=== PATIENT | female | born 1965 | race Caucasian/White ===

== ENCOUNTER 2024-09-25 09:07 | Inpatient (IN) | payer MEDICARE, SELFPAY ==
[2024-09-25] VITALS (10 sets, daily range): BP systolic 138–169; BP diastolic 63–81; PULSE 75–93; RESP 16–29; TEMP 36.6–36.8; O2SAT 87–99; BMI 32.3
--- NOTE | ~2024-09-25 | XR_ITS ---
EXAMINATION: XR CHEST 1 VIEW HISTORY: sob COMPARISON: There are no prior studies for comparison. FINDINGS: A single AP portable view of the chest performed at 9:36 AM is submitted. There are streaky opacities in the right upper lung zone which may represent early pneumonia. Lung is clear. There is no pleural effusion, pneumothorax, or pulmonary vascular congestion. The heart is normal in size. There is degenerative disc disease of the spine. XR/XR chest 1V IMPRESSION: Streaky opacities in the right upper lung zone may represent early pneumonia. Follow-up is recommended to document resolution. Electronically signed by: Melvin Garcia MD 09/25/2024 10:02 AM EDT
--- NOTE | 2024-09-25 09:16 | ECG_ITS ---
Test Reason : SOB Blood Pressure : */* mmHG Vent. Rate : 84 BPM Atrial Rate : 84 BPM P-R Int : 144 ms QRS Dur : 84 ms QT Int : 384 ms P-R-T Axes : 87 7 45 degrees QTcB Int : 453 ms Normal sinus rhythm Normal ECG No previous ECGs available Referred By: Mercedez Garza Electronically Signed By: LUCRETIA DE LA CRUZ MD
--- NOTE | 2024-09-25 09:25 | ED_ITS ---
HPI - SOB/Dyspnea General Chief Complaint: Dyspnea Stated Complaint: SOB Time Seen by Provider: 09/25/24 09:16 Source: patient, EMS and RN notes reviewed Mode of arrival: EMS Limitations: no limitations History of Present Illness ED Provider: Gordon Garza PA-C HPI Narrative: 59-year-old female with history of active smoking, 1 pack per day, history of COPD, DM2, HTN, HLD who presents to the ER from urgent care for evaluation of worsening shortness of breath and URI symptoms for the last 6 days. She reports she 1st started with what seemed like allergy symptoms on 09/20 with watery eyes and runny nose. By 09/21 she was feeling fatigue, shortness of breath, having more coughing than usual. She went to the walk-in center 2 days ago and got prescribed doxycycline and prednisone. She has had ongoing shortness of breath, now with productive cough of yellow phlegm, so she went back to the urgent care today. She was found to be hypoxic with diffuse wheezing and was brought to the ER by ambulance. Patient was hypoxic to 86% on arrival, speaking complete sentences with increased respiratory rate. She denies associated chest pain, fever, chills, nausea, vomiting, diarrhea, abdominal pain, leg swelling or known sick contacts. MD elicited complaint: shortness of breath and cough Pertinent past history: COPD Onset (ago): day(s) () Timing: progressively worsening Severity: moderate Exacerbating factors: coughing, talking and allergies Relieving factors: oxygen, rest, bronchodilators and upright position Known history of: COPD Associated symptoms: cough, wheezing, sputum production and chest congestion Treatment prior to arrival: oxygen and bronchodilator Related Data Home oxygen amount: none Home Medications ?Medication ?Instructions ?Recorded ?Confirmed albuterol sulfate 90 mcg/actuation 2 puff inhalation Q4H PRN 09/25/24 aerosol inhaler Shortness Of Breath Or Wheezing aripiprazole 15 mg tablet 15 mg PO DAILY 09/25/24 doxycycline hyclate 100 mg tablet 100 mg PO BID 09/25/24 duloxetine 60 mg capsule,delayed 60 mg PO BID 09/25/24 release fenofibrate nanocrystallized 145 145 mg PO DAILY 09/25/24 mg tablet fluticasone 100 mcg-salmeterol 50 1 ea inhalation BID 09/25/24 mcg/dose blistr powdr for inhalation (Wixela Inhub) gabapentin 300 mg capsule 600 mg PO TID 09/25/24 glyburide 5 mg tablet 10 mg PO BID 09/25/24 lamotrigine 100 mg tablet 200 mg PO BEDTIME 09/25/24 lisinopril 5 mg tablet 5 mg PO DAILY 09/25/24 lorazepam 1 mg tablet 1 mg PO QID 09/25/24 pioglitazone 45 mg tablet 45 mg PO DAILY 09/25/24 prednisone 20 mg tablet 20 mg PO BID 09/25/24 simvastatin 20 mg tablet 20 mg PO BEDTIME 09/25/24 Allergies Allergy/AdvReac Type Severity Reaction Status Date / Time No Known Allergies Allergy Verified 09/25/24 09:20 Review of Systems 2 Review of Systems: Yes all other systems are reviewed and are negative [facility] Social History Social History Advance Directives: No Advance Directives Information Provided: Yes Do you have a plan to hurt others: No Plan Physical Exam 2 Vital Signs: Vital Signs: Last Vital Signs Temp 98.3 F 09/25/24 10:00 Pulse 93 09/25/24 10:50 Resp 20 09/25/24 10:50 BP 157/75 H 09/25/24 10:00 Pulse Ox 90 L 09/25/24 10:00 O2 Del Method Nasal Cannula 09/25/24 10:00 O2 Flow Rate 4 09/25/24 10:00 BMI result Body Mass Index 32.3 Appearance: Alert. Oriented X3. Mild acute respiratory distress. Head: normocephalic, atraumatic. Eyes: Pupils equal, round and reactive to light. ENT: Pharynx normal. No tonsillar swelling or exudate. Neck: Normal inspection. Neck supple. CVS: Normal heart rate and rhythm. Pulses normal. Respiratory: Mild respiratory distress. Breath sounds diminished at the bases, poor aeration at the right base, diffuse expiratory wheeze, prolonged expiratory phase Abdomen: Soft and nontender. +BS x4 Skin: Skin warm and dry. Normal skin color. Normal skin turgor. No rashes. Extremities: No lower extremity edema. No joint swelling. Neuro/psych: Oriented X 3. No motor deficit. No sensory deficit. CN II-XII intact. Normal speech and cognition. Medications Administered Generic Name Dose Route Start Last Admin Trade Name Freq PRN Reason Stop Dose Admin Azithromycin 500 mg/ Sodium 250 mls @ 125 mls/hr 09/25/24 09:24 09/25/24 10:07 Chloride IV 09/25/24 11:23 125 mls/hr ONCE ONE Administration Discontinued Medications Generic Name Dose Route Start Last Admin Trade Name Kain PRN Reason Stop Dose Admin Albuterol Sulfate 5 mg/ 7.5 mg 09/25/24 09:17 09/25/24 09:28 Albuterol Sulfate 2.5 mg INHALE 09/25/24 09:18 7.5 mg ONCE ONE Administration Ceftriaxone Sodium 1 gm 09/25/24 09:24 09/25/24 10:07 Ceftriaxone Sodium 1 Gm Vial IVPUSH 09/25/24 09:25 1 gm ONCE ONE Administration Sodium Chloride 1,000 mls @ 999 mls/hr 09/25/24 09:30 09/25/24 10:07 Ns IV 09/25/24 10:30 999 mls/hr .Q1H1M GHAZAL Administration Insulin Human Lispro 8 unit 09/25/24 10:26 09/25/24 10:35 Insulin Lispro 100 Unit/Ml 3 Ml Vial SUBCUT 09/25/24 10:27 8 unit ONCE ONE Administration Methylprednisolone Sodium Succinate 60 mg 09/25/24 09:24 09/25/24 09:37 Methylprednisolone Sod Succ 125 Mg Vial IVPUSH 09/25/24 09:25 60 mg ONCE ONE Administration Medical Decision Making Medical Decision Making MDM Narrative: 59-year-old female presenting with shortness of breath, cough, chest congestion, that is worsening over the last 6 days despite oral antibiotics and prednisone. She is hypoxic on arrival with mild increased work of breathing, respiratory rate 28 and SpO2 86%. She is placed on supplemental oxygen and ED bronchodilator protocol started. Defer noninvasive for now, she is speaking in complete sentences. Patient found to have a right upper lobe infiltrate on chest x-ray. Patient ordered for Rocephin and azithromycin. After 1st breathing treatment she is feeling slightly better. She is still requiring 4 L of oxygen to maintain SpO2 90-93%. Will plan to admit the patient for further management of pneumonia and COPD exacerbation. Patient also found to be positive for influenza A. She has been having symptoms for 6 days is not qualify for treatment with Tamiflu. Updated on diagnosis and management and plan for admission. Patient agrees with plan all questions were answered. Differential Diagnosis Differential Diagnoses: The differential diagnosis associated with the presentation includes Acute COPD exacerbation, community-acquired pneumonia, acute bronchitis, viral upper respiratory tract infection, acute CHF exacerbation, ACS, PE Admission/Observation Consideration of admission/observation: Escalation of care including admission/observation considered Consult Healthcare Provider Management of the patient was discussed with: Hospitalist Lab Data [facility] Lab Attestation statement: I reviewed the patient's lab results. 09/25/24 09:52 09/25/24 09:52 Labs: Lab Results 09/25/24 09/25/24 09/25/24 Range/Units 09:51 09:52 09:53 WBC 10.8 (4.8-10.8) X10*3/uL RBC 4.81 (4.20-5.50) X10*6/uL Hgb 15.9 (12.0-16.0) g/dl Hct 46.6 (37.0-47.0) % MCV 96.9 (80.0-98.0) fL MCH 33.1 H (27.0-33.0) pg MCHC 34.1 (31.0-35.0) g/dl RDW 13.8 (11.0-16.0) % Plt Count 187 (160-400) X10*3/uL MPV 10.3 (9.4-12.3) fL Immature Gran % (Auto) 0.5 H (0.0-0.4) % Neut % (Auto) 86.7 H (45-73) % Lymph % (Auto) 9.6 L (20-40) % [place] % (Auto) 3.0 (2-11) % Eos % (Auto) 0.0 (0-4) % Baso % (Auto) 0.2 (0-2) % Lymph # (Auto) 1.0 L (1.2-4.9) X10*3/uL [place] # (Auto) 0.3 (0.1-1.2) X10*3/uL Eos # (Auto) 0.0 (0.0-0.4) X10*3/uL Baso # (Auto) 0.0 (0.0-0.2) X10*3/uL Abs Immat Gran (auto) 0.05 H (0.00-0.03) X10*3/uL Absolute Neuts (auto) 9.4 H (2.0-8.3) x10*3/uL Absolute Nucleated RBC 0.000 (0.0-0.012) X10*3/uL Nucleated RBC % (auto) 0.0 (0.0-0.2) /100WBC VBG pH (7.32-7.43) VBG pCO2 mmHg VBG pO2 mmHg VBG HCO3 (22-26) mmol/L VBG O2 Saturation % VBG Base Excess mmol/L Sodium 139 (135-145) mmol/L Potassium 4.3 (3.3-5.1) mmol/L Chloride 100 (96-108) mmol/L Carbon Dioxide 24 (22-29) mmol/L Anion Gap 19 (12-20) BUN 15 (9-16) mg/dL Creatinine 0.74 (0.5-1.4) mg/dL Estim Creat Clear Calc 78.2 Estimated GFR > 60 Random Glucose 311 H (60-115) mg/dL Lactic Acid 1.5 (0.5-2.0) mmol/L Calcium 9.5 (8.4-10.2) mg/dL Magnesium 2.5 (1.6-2.6) mg/dL Total Bilirubin 0.5 (0.0-1.0) mg/dL Direct Bilirubin 0.2 (0.0-0.5) mg/dL AST 50 H (5-31) U/L Alkaline Phosphatase 79 (39-117) U/L Troponin I High Sens 9.0 (<3.5-17.0) ng/L B-Natriuretic Peptide 90 (<100) pg/mL Total Protein 7.6 (6.5-8.0) g/dL Albumin 4.3 (3.5-5.0) g/dL Influenza Type A (PCR) POSITIVE A (Negative) Influenza Type B (PCR) NEGATIVE (Negative) RSV RNA Qual (PCR) NEGATIVE (Negative) SARS-CoV-2 RNA (RT-PCR) NEGATIVE (Negative) 09/25/24 Range/Units 10:01 WBC (4.8-10.8) X10*3/uL RBC (4.20-5.50) X10*6/uL Hgb (12.0-16.0) g/dl Hct (37.0-47.0) % MCV (80.0-98.0) fL MCH (27.0-33.0) pg MCHC (31.0-35.0) g/dl RDW (11.0-16.0) % Plt Count (160-400) X10*3/uL MPV (9.4-12.3) fL Immature Gran % (Auto) (0.0-0.4) % Neut % (Auto) (45-73) % Lymph % (Auto) (20-40) % [place] % (Auto) (2-11) % Eos % (Auto) (0-4) % Baso % (Auto) (0-2) % Lymph # (Auto) (1.2-4.9) X10*3/uL [place] # (Auto) (0.1-1.2) X10*3/uL Eos # (Auto) (0.0-0.4) X10*3/uL Baso # (Auto) (0.0-0.2) X10*3/uL Abs Immat Gran (auto) (0.00-0.03) X10*3/uL Absolute Neuts (auto) (2.0-8.3) x10*3/uL Absolute Nucleated RBC (0.0-0.012) X10*3/uL Nucleated RBC % (auto) (0.0-0.2) /100WBC VBG pH 7.34 (7.32-7.43) VBG pCO2 49 mmHg VBG pO2 48 mmHg VBG HCO3 27 H (22-26) mmol/L VBG O2 Saturation 76.0 % VBG Base Excess 0.5 mmol/L Sodium (135-145) mmol/L Potassium (3.3-5.1) mmol/L Chloride (96-108) mmol/L Carbon Dioxide (22-29) mmol/L Anion Gap (12-20) BUN (9-16) mg/dL Creatinine (0.5-1.4) mg/dL Estim Creat Clear Calc Estimated GFR Random Glucose (60-115) mg/dL Lactic Acid (0.5-2.0) mmol/L Calcium (8.4-10.2) mg/dL Magnesium (1.6-2.6) mg/dL Total Bilirubin (0.0-1.0) mg/dL Direct Bilirubin (0.0-0.5) mg/dL AST (5-31) U/L Alkaline Phosphatase (39-117) U/L Troponin I High Sens (<3.5-17.0) ng/L B-Natriuretic Peptide (<100) pg/mL Total Protein (6.5-8.0) g/dL Albumin (3.5-5.0) g/dL Influenza Type A (PCR) (Negative) Influenza Type B (PCR) (Negative) RSV RNA Qual (PCR) (Negative) SARS-CoV-2 RNA (RT-PCR) (Negative) Independent Interpretation I performed an independent interpretation of an: EKG and Plain X-Ray Interpretation: EKG with normal sinus rhythm, ventricular rate 84 beats per minute, mild artifact present, no ST segment elevations or depressions, normal QTC, normal OH interval Chest x-ray with patchy bilateral opacities, right worse than left Radiology Impression Discussion of test interpretation with radiology: I have reviewed the radiologist's reading. Radiologist Impression: EXAMINATION: XR CHEST 1 VIEW HISTORY: sob COMPARISON: There are no prior studies for comparison. FINDINGS: A single AP portable view of the chest performed at 9:36 AM is submitted. There are streaky opacities in the right upper lung zone which may represent early pneumonia. Lung is clear. There is no pleural effusion, pneumothorax, or pulmonary vascular congestion. The heart is normal in size. There is degenerative disc disease of the spine. XR/XR chest 1V IMPRESSION: Streaky opacities in the right upper lung zone may represent early pneumonia. Follow-up is recommended to document resolution. Independent Historian Clinical information obtained from an independent historian. History obtained from or confirmed by: EMS Tests considered The following testing was considered but not selected: CT scan of the chest considered Prescription Management I considered prescription management with: Pain Medication, Antiviral, Antibiotic and Other (Bronchodilator, steroids) Chronic Conditions Patient?s care impacted by: Other (COPD) Critical Care Time Critical Care Time Critical Care Time: Yes Total Critical Care Time: 36 Attestation: I have personally provided critical care time exclusive of time spent on separately billable procedures. Time includes review of lab data, radiology results, discussion with consultants, and monitoring for potential decompensation. Intervention performed as documented. Discharge Plan Discharge Clinical Impression: Acute exacerbation of chronic obstructive airways disease, Influenza A Community acquired pneumonia Qualifiers: Laterality: right Lung location: unspecified part of lung Qualified Code(s): J 18.9 - Pneumonia, unspecified organism Patient Disposition: Admitted As Inpatient Print Language: Icelandic
[2024-09-25] MEDS: Albuterol Sulfate 5 MG, Albuterol Sulfate (0.083%) 2.5 MG 7.5 MG INHALE (09:28)
--- NOTE | 2024-09-25 09:28 | PC.NURSE ---
Per EMS, pt had been having difficulty breathing since sunday. Pt was seen in urgent care on Sunday adn given updraft, doxycycline, and prednisone. Symptoms got worse and was seen at urgent care today. Pt was 80% on RA and received 1 albuterol at urgent care. Ambulence gave 2 duo nebs, 1 albuterol, 125mg of solumed, and 2mg of mag sulfate.
[2024-09-25 09:58] LABS: MANUAL DIFF FLAG NO
[2024-09-25 10:00] LABS: Basophils Percent Auto 0.2 % (0-2); Hematocrit 46.6 % (37.0-47.0); Hemoglobin 15.9 g/dl (12.0-16.0); Imm Gran Abs Auto 0.05 X10*3/uL (0.00-0.03); Imm Gran Pct Auto 0.5 % (0.0-0.4); Lymphocytes Percent Auto 9.6 % (20-40); Mean Corpuscular HGB Conc 34.1 g/dl (31.0-35.0); Mean Corpuscular Hemoglobin 33.1 pg (27.0-33.0); Mean Corpuscular Volume 96.9 fL (80.0-98.0); Mean Platelet Volume 10.3 fL (9.4-12.3); Monocytes Absolute Auto 0.3 X10*3/uL (0.1-1.2); Neutrophils Absolute Auto 9.4 x10*3/uL (2.0-8.3); Neutrophils Percent Auto 86.7 % (45-73); Platelet Count 187 X10*3/uL (160-400); Red Blood Count 4.81 X10*6/uL (4.20-5.50); Red Cell Distribution Width 13.8 % (11.0-16.0); White Blood Count 10.8 X10*3/uL (4.8-10.8)
[2024-09-25 10:04] LABS: Venous Blood Gas Refer to POC result
[2024-09-25 10:04] LABS: VBG Base Excess 0.5 mmol/L; VBG HCO3 27 mmol/L (22-26); VBG pCO2 49 mmHg; VBG pH 7.34 (7.32-7.43); VBG pO2 48 mmHg
[2024-09-25] MEDS: 0.9 % Sodium Chloride 1,000 ML 999 ML IV (10:07)
[2024-09-25] MEDS: cefTRIAXone sodium 1 GM VIAL IVPUSH (10:07)
[2024-09-25] MEDS: Azithromycin 500 MG in 0.9 % Sodium Chloride 250 ML 125 MG IV (10:07)
[2024-09-25 10:21] LABS: Lactic Acid 1.5 mmol/L (0.5-2.0)
[2024-09-25 10:23] LABS: Albumin Level 4.3 g/dL (3.5-5.0); Anion Gap 19 (12-20); Aspartate Amino Transferase 50 U/L (5-31); Bilirubin Direct 0.2 mg/dL (0.0-0.5); Bilirubin Total 0.5 mg/dL (0.0-1.0); Blood Urea Nitrogen 15 mg/dL (9-16); Calcium 9.5 mg/dL (8.4-10.2); Carbon Dioxide 24 mmol/L (22-29); Chloride 100 mmol/L (96-108); Creatinine Clr Calc Pharmacy 78.2; Estimated Glomerular Filt Rate > 60; Glucose Random 311 mg/dL (60-115); Magnesium 2.5 mg/dL (1.6-2.6); Potassium 4.3 mmol/L (3.3-5.1); Sodium 139 mmol/L (135-145); Total Protein 7.6 g/dL (6.5-8.0)
[2024-09-25 10:24] LABS: B Type Natriuretic Peptide 90 pg/mL (<100)
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
--- OUTSIDE RECORDS SUMMARY | 2024-09-25 10:27 | XMS_ITS | Patient Health Record ---
[facility] Organization [facility] Address [address] [facility] [place] [address] Care Team Providers Care Junior Media Buyer Name Role Phone Taniya Ibarra MD Primary Care Provider Unavail able Trent Galan Unavailable [phone] Allergies No Known Allergies Results Component Value Reference Range Notes HEMOGLOBIN A1C (GLYCOHEMOGLO BIN) Reviewed date:12/19/2023 08:34:55 AM Interpretation: Performing Lab: Notes/Report: HEMOGLOBIN A1C % (HH) 6.7 Reason For Referral No Information Medications Medication SIG (Take, Route, Frequency, Duration) Notes Start Date End Date Status Gemfibrozil Active ProAir HFA Not-Takin g glyBURIDE 5 MG Orally Twice daily Active DULoxetine HCl Activ e Escitalopram Oxalate 10 MG Orally Once a day Not-Taking Fenofibrate Active Chantix 1 MG 1 tablet Orally Twic e a day Not-Taking Lisinopril Not-Takin g Centrum Silver Activ e oxyBUTYnin Not-Takin g Extra Depth Orthopedic Shoes (1 Pair) with Customized Heat Molded Multidensity Innersoles (3 Pair) as directed Dx: NIDDM (E11.9), Hammertoe Foot Deformity (M20.41,M20.42), Preulcerative Skin Lesion(s) (L85.1) 12/19/2023 Active centrum silver Not-T aking Pioglitazone HCl 15 MG 1 tablet Orally O nce a day for 30 day(s) Active Simvastatin Active LaMICtal Active LORazepam 1 MG 1 tablet as needed Orally Twice a day 04/30/2014 Active Immunizations Vaccine Route Administration Date Status Comme nts COVID-19 Moderna Vaccine Unknown 08/25/2020 Administere d 07/27/20 Influenza Unknown 01/28/2018 Administered Influenza Unknown 02/17/2019 Administered Influenza Unknown 03/14/2020 Administered Social History Tobacco Use: Social History Observation Description Date Details (start date - stop date) Current Smoker NA - NA Tobacco Use/Smoking Question Answer Notes Are you a: current smoker Additional Findings: Tobacco User Moderate cigar ette smoker (10-19 cigs/day) Alcohol Screen Question Answer Notes Did you have a drink contain ing alcohol in the past year? Yes How often did you have a dri nk containing alcohol in the past year? Monthly or less (1 point) Points 1 Interpretation Negative Tobacco use other than smoking: Question Answer Notes Are you an other tobacco user? No Problems Problem Type SNOMED Code ICD Code Onset Dates Problem Status W/U Status Risk Notes Problem Acquired hammer toe of right foot (609596646611101 5) Other hammer toe(s) (acquired), right foot (M20.41) Active confirmed Problem Acquired hammer toe of left foot (311725565685059 3) Other hammer toe(s) (acquired), left foot (M20.42) Active confirmed Problem Type 2 diabetes mellitus without complication (341675473) Type 2 diabetes mellitus without complication (E11.9) Active confirmed Vital Signs Height 5ft 2 in in 12/19/2023 Weight 166 lbs 12/19/2023 BMI 30.36 kg/m2 12/19/2023 Procedures Procedure Date Ordered Date Performed Result Body Sit e 19354-OMQYSKK NAIL, 6 OR MORE 12/19/2023 N/A Encounters Encounter Location Date Provider Diagnosis [facility] [place] [address] [place] [id number] 12/19/2023 Trent Adama Pain in right toe(s) M79.674 ; Tinea unguium B35.1 ; Pain in left toe(s) M79.675 ; Type 2 diabetes mellitus without complication E11.9 ; Other hammer toe(s) (acquired), left foot M20.42 and Other hammer toe(s) (acquired), right foot M20.41 Assessments Encounter Date Diagnosis (ICD Code) Assessment Notes Treatment Notes Treatment Clinical Notes Section Notes 12/19/2023 Pain in right toe(s) (ICD-10 - M79.674) 12/19/2023 Tinea unguium (ICD-10 - B35.1) 12/19/2023 Pain in left toe(s) (ICD-10 - M79.675) 12/19/2023 Type 2 diabetes mellitus without complication (ICD-10 - E11.9) 12/19/2023 Other hammer toe(s) (acquired), left foot (ICD-10 - M20.42) 12/19/2023 Other hammer toe(s) (acquired), right foot (ICD-10 - M20.41) Patient Educated with: DIABETIC FOOT CARE INSTRUCTIONS.p df (DIABETIC FOOT CARE INSTRUCTIONS.p df) Plan Of Treatment Pending Test Test Name Order Date Hemoglobin A1c 09/17/2014 [id number] NAIL, 6 OR MORE 04/30/2014 70615-[id number] NAIL, 6 OR MORE 09/17/2014 [id number] NAIL, 6 OR MORE 03/20/2018 [id number] NAIL, 6 OR MORE 03/17/2019 [id number] NAIL, 6 OR MORE 05/27/2020 [id number] NAIL, 6 OR MORE 07/18/2021 [id number] NAIL, 6 OR MORE 07/24/2022 [id number] NAIL, 6 OR MORE 12/19/2023 [id number] NAIL, 6 OR MORE 01/11/2017 26730-Lzjjkxmd Plate 03/20/2018 27131-Lrwwxcyr Plate 04/30/2014 73670-Rorxatwd Plate 01/11/2017 Next Appt Details Provider Name:Trent Galan , 12/17/2024 08:30:00 AM, [address] [facility], [address], [place], [address], Insurance Providers Payer Name Payer Address Payer Phone Subscriber Number Group Number Insured Name Patient Relationship to Insured Coverage Start Date Coverage End Date [employer] [address] [place] [phone] [id number] Juan M Laughlin Spouse - patient is the spouse of the insured Medicare [facility] [address] [facility] [place] [phone] [id number] Ledy Laughlin Self - patient is the insured 8 Medical (General) History Medical History History ICD Code Anxiety asthma Chicken pox Depression Measles Sciatica Cholesterol Diabetic Surgical History Surgery Date(Month/Year) section 87 & 90 hysterectomy 93 abdominal surgery 96 eye surgery 06/2015 Colostomy ileostomy 04/29/2020 Hospitalization History Reason Date(Month/Year) [facility] Colon resection 01[facility]28[facility]18 [facility] Accute diverticulitis 10/15/17 Eye surgery
--- OUTSIDE RECORDS SUMMARY | 2024-09-25 10:27 | XMS_ITS ---
Author Organization [facility] Address [address] [place] [address] Care Team Providers Care Baseball Inspector And Repairer Name Role Phone Taniya Ibarra MD Primary Care Provider Unavail able Trent Galan Unavailable [phone] Allergies No Known Allergies REASON FOR VISIT At Risk Footcare, Painful Nail(s) aggravated by shoes and causing difficulty standing/walking., ToeIrritation Medications Medication SIG (Take, Route, Frequency, Duration) Notes Start Date End Date Status Escitalopram Oxalate 10 MG Orally Once a day Not-Taking Chantix 1 MG 1 tablet Orally Twic e a day Not-Taking Lisinopril Not-Takin g oxyBUTYnin Not-Takin g centrum silver Not-T aking glyBURIDE 5 MG Orally Twice daily Active Pioglitazone HCl 15 MG 1 tablet Orally O nce a day for 30 day(s) Active Simvastatin Active LaMICtal Active LORazepam 1 MG 1 tablet as needed Orally Twice a day 04/30/2014 Active Gemfibrozil Active ProAir HFA Not-Takin g DULoxetine HCl Activ e Fenofibrate Active Centrum Silver Activ e Extra Depth Orthopedic Shoes (1 Pair) with Customized Heat Molded Multidensity Innersoles (3 Pair) as directed Dx: NIDDM (E11.9), Hammertoe Foot Deformity (M20.41,M20.42), Preulcerative Skin Lesion(s) (L85.1) 12/19/2023 Active Social History Tobacco Use: Social History Observation [...] Are you an other tobacco user? No Vital Signs Height 5ft 2 in in 12/19/2023 Weight 166 lbs 12/19/2023 BMI 30.36 kg/m2 12/19/2023 Procedures Procedure Date Ordered Date Performed Result Body Sit e 43855-MPRRTIF NAIL, 6 OR MORE 12/19/2023 N/A Encounters Encounter Location Date Provider Diagnosis [facility] [address] [address] 12/19/2023 Trent Ponceunier Pain in right toe(s) M79.674 ; Tinea [...] FOOT CARE INSTRUCTIONS.p df) Plan Of Treatment Medication Medication Name Sig Start Date Stop Date Notes Extra Depth Orthopedic Shoes (1 Pair) with Customized Heat Molded Multidensity Innersoles (3 Pair) as directed Dx: NIDDM (E11.9), Hammertoe Foot Deformity (M20.41,M20.42), Preulcerative Skin Lesion(s) (L85.1) 12/19/2023 Treatment Notes Assessment Notes Other hammer toe(s) (acquired), right fo ot Patient Educated with: DIABETIC FOOT CARE INSTRUCTIONS.pdf (DIABETIC FOOT CARE INSTRUCTIONS.pdf) Pending Test Test Name Order Date [id number] NAIL, 6 OR MORE 12/19/2023 Next Appt Details Follow Up: 1 Year, Reason: Provider Name:Trent Galan , 12/17/2024 08:30:00 AM, [address] [facility], [address], [place], [address], Procedure Notes * Category Sub-Category Detail Notes Debride Nail 6-10 Nail debridement Nail debridem ent performed extensively to reduce/remove overall nail length, girth, thickness, subungual debris, and necrotic tissue, by manual and electrical means through the use of a nail nipper and/or dremel, to more viable healthy nail plate or bed tissue 6-10. Silver nitrate used for any petechial bleeding as necessary. Patient chooses, no pharmaceutical tx (99606) Progress Notes * Ledy LAUGHLIN EDOB:1965 ( 59 yo F)Acc No.[id number]:12/19/2023 Progress Note Patient:?Ledy LAUGHLIN Provider:?Trent Galan DPM :1965???Age:58 Y???Sex:Female D ate:12/19/2023 Address:[address], [place], [phone] Pcp:Taniya Ibarra MD Subjective: * Chief Complaints: * ???At Risk FootcarePainful N ail(s) aggravated by shoes and causing difficulty standing/walking.Toe Irritation * HPI: ???At Risk footcare:?Pt States Last PCP Visit:?Date?11/23/2023 ???Toe pain:?Location:?B/L feet.?Duration:?several years.?Course:?worse.?Aggravated by:?shoes, any pressure.?Treatments:?change in shoes.? * ROS:?General/Constitutional:?Nausea?denies.?Vomiting?denies.?Hunger Thirst?denies.?Loss appetite?denies.?Chills?denies.?Fatigue?denies.?Fever?denies.?Night Sweats?denies.?Unexplained weight loss?denies.?Ophthalmologic:?Blurred vision?denies.?Red eye?denies.?HEENTM:?Dentures?denies.?Dizziness?denies.?Glasses/contacts?admits.?Retinopathy?den ies.?Blurred/double vision?denies.?TMJ?denies.?Discharge/drainage?denies.?Implants?denies.?Hard of hearing denies.?Difficulty chewing/swallowing/speaking?denies.?Nose bleeds?denies.?Sore mouth?denies.?Swollen glands?denies.?Respiratory:?On O xygen?denies.?Pneumonia/pleurisy?denies.?Bronchitis?denies.?Emphysema?denies.?Co ughing?denies.?Cough blood?denies.?Shortness of breath?denies.?Wheezing?denies.?Cardiovascular:?Pacemaker?denies.?MVP?denies.?WPW?denies.?CHF?denies.?Heart attack?denies.?Septal defect?denies.?Rapid beat?denies.?Chest pain ?denies.?Atrial Fib.?denies.?Murmur/Palpitations?denies.?Gastrointestinal:?Hemorrhoids?denies.?Stomach/Abdominal pain?denies.?Dark blood stool?denies.?Irritable bowel ?denies.?Constipation?denies.?Diarrhea?denies.?Vomiting?denies.?Hematology:?Swelling?denies.?Bruising?denies.?Bleeding problem?denies.?Genitourinary:?Blood urine?denies.?Frequent/Painfu/urination/bladder control?denies.?Kidney stones?denies.?Infection (UTI)?denies.?Nephropathy?denies.?Musculoskeletal:?Hammertoes?admits.?Bunions?denies.?Scoliosis/kyphosis?denies.?Muscle cramps / walking?denies.?Generalized aches and pains?denies.?Weakness?denies.?Integ.:?Mendoza?denies.?Scars?admits.?Corns/calluses?admits.?Ingrown nails?admits.?Painful nails?admits.?Rashes?denies.?Neurologic:?Difficulty sleeping?admits.?Bipolar?denies.?Brain disorder?denies.?Balance t rouble?denies.?Confusion?denies.?Fainting/blackouts?denies.?Headache?denies.?Eligio mors?denies.? * Medical History:? * Surgical History:? s ection 87 & 90hysterectomy 93abdominal surgery 96eye surgery 06/2015Colostomy 9'18ileostomy 04/29/2020 * Hospitalization/Major Diagno stic Procedure:?Eye surgery [facility] Accute diverticulitis 10/15/17[facility] Colon resection 01/28/18[facility] 02/12/18 * Family History:?Mother: zach garsia?Father: , diagnosed with Diabetic - NIDDM, Unspecified essential hypertension, Unspecified heart disease, Unspecified cerebral artery occlusion with cerebral infarction.?Daughter(s): alive.?Son(s): .?Maternal Grand Mother: unknown, diagnosed with Diabetic - NIDDM.?Spouse: alive.?1 son(s) , 1 daughter(s) . .? * Social History:?Tobacco Use:?Tobacco Use/Smoking?Are you a:?current smoker ?Additional Findings: Tobacco User?Moderate cigarette smoker (10-19 cigs/day) ?Tobacco use other than smoking?Are you an other tobacco user??No ???Drugs/Alcohol:?Drugs?Have you used drugs other than those for medical reasons in the past 12 months??No ?Alcohol Screen?Did you have a drink containing alcohol in the past year??Yes ?How often did you have a drink containing alcohol in the past year??Monthly or less (1 point) ?Points?1 ?Interpretation?Negative ???Miscellaneous:?Caffeine: yes, frequency: , 1-2 cups per day. ?Children: yes. ?Exercise: yes, walking. ?Marital status: . ?Occupation: Retired. * Medications:?TakingCentrum S ilver DULoxetine HCl Fenofibrate Gemfibrozil glyBURIDE 5 MG Tablet Orally Twice daily LaMICtal LORazepam 1 MG Tablet 1 tablet as needed Orally Twice a day Pioglitazone HCl 15 MG Tablet 1 tablet Orally Once a day Simvastatin Taking Centrum Silver Taking DULoxetine HCl Taking Fenofibrate Taking Gemfibrozil Taking glyBURIDE 5 MG Tablet Orally Twice daily Taking LaMICtal Taking LORazepam 1 MG Tablet 1 tablet as needed Orally Twice a day Taking Pioglitazone HCl 15 MG Tablet 1 tablet Orally Once a day Taking Simvastatin Not-Taking/PRNcentrum silver Lisinopril oxyBUTYnin Escitalopram Oxalate 10 MG Tablet Orally Once a day Chantix 1 MG Tablet 1 tablet Orally Twice a day ProAir HFA Medication List reviewed and reconciled with the patientNot-Taking/PRN centrum silver Not-Taking/PRN Lisinopril Not-Taking/PRN oxyBUTYnin Not-Taking/PRN Escitalopram Oxalate 10 MG Tablet Orally Once a day Not-Taking/PRN Chantix 1 MG Tablet 1 tablet Orally Twice a day Not-Taking/PRN ProAir HFA Medication List reviewed and reconciled with the patient * Allergies:?N.K.D.A.yes[Aller gies Verified] Objective: * Vitals:?Ht:5ft 2 in, Wt:166, BMI:30.36, Shoe size:9, BS:128, Ht-cm: 157.48 cm, Wt-k.3 kg. * ???Past Orders: ???Lab:HEMOGLOBIN A1C (GLYCO HEMOGLOBIN) (Order Date - 11/29/2023) (Collection Date & Time - 11/29/2023 08:33 AM) ? Value Reference Range ?HEMOGLOBIN A1C % (HH) 6.7 * Examination: ???Ophthalmology Referral: ?DIABETES EYE EXAM?Procedure Performed:?Yes ?Date of Exam Performed?10/24/2023?Nails: ?NAILS are:?Elongated, overgrown, dystrophic, greater than 3mm thick, lytic, discolored and friable with crumbly malodorous subungual debris, with pain on palpation, TA, T1, T2, T4, T5, T6, T9.?Orthopedic: ?MUSCLE STRENGTH:?5/5 all groups in a symmetrical fashion , B/L.?FOOT MORPHOLOGY:? No Charcot collapse/destruction noted at MTJ.?DIGITAL DEFORMITIES:?Digital contracture, PIPJ, 2-5 B/L, incompl-reducible to push-up test, no over, nor underlapping, with evidence of shoe producing skin irritation.?FOOTWEAR:?worn, OT were inspected and noted to be severely worn , in poor condition not giving proper support at the present time, shoe gear properties exacerbate patient's foot/toe deformity .?Dermatologic: ?SKIN FINDINGS:?Skin exam reveals Keratotic lesion(s) located at, Medial plantar, IPJ, TA, Medial plantar, IPJ, T5.?Neurological: ?SENSORY:?Neurological exam reveals intact sensorium, pain sensation normal, vibration sensation intact, pinprick sensation is normal in the lower extremities, 5.07 monofilament test , normal, B/L, Pt denies, anesthesia, burning, paresthesia, tingling, B/L.?Vascular: ?DP PULSES (B):?2/4, B/L.?PT PULSES (B):?2/4, B/L.?CAPILLARY FILL TIME:?3 secs. per digit, B/L.?TROPHIC CONDITION-TEXTURE/ELASTICITY/TURGOR/HAIR GROWTH (B):?decreased, B/L.?TEMPERTURE GRADIENT (C):?decreased, cool to cool, proximal to distal, B/L.?PIGMENTATION:? mottled, B/L.?EDEMA (C):?absent, B/L.?General Examination: ?GENERAL APPEARANCE:?Reveals a pleasant, alert, well nourished, well- developed, well hydrated individual, who demonstrates proper attention to hygiene/body habitus, and is in no acute distress, Pt serves as own historian for office visit today.?ORIENTED:?person, place, and time.?FOOT EXAM:?Lower Extremity Neurological Exam performed:?Yes ?Visual exam of foot performed:?Yes ?Date?12/19/2023 ?Footwear Evaluation?Footwear Evaluation performed:?Yes??? Assessment: * Assessment: 1.?Pain in right toe(s) - M7 9.674???2.?Tinea unguium - B35.1???3.?Pain in left toe(s) - M79.675???4.?Type 2 diabetes mellitus without complication - E11.9???5.?Other hammer toe(s) (acquired), left foot - M20.42???Specify :Chronic problem, Worse (4),Rx Management (4)???6.?Other hammer toe(s) (acquired), right foot - M20.41 (Primary)???Specify :Chronic problem, Worse (4),Rx Management (4)??? Plan: * Treatment: 2.?Tinea unguium?Procedure: 10499-NXXMPSU NAIL, 6 OR MORE * Procedures:?Debride Nail 6-10:?Nail debridement?Nail debridement performed extensively to reduce/remove overall nail length, girth, thickness, subungual debris, and necrotic tissue, by manual and electrical means through the use of a nail nipper and/or dremel, to more viable healthy nail plate or bed tissue 6-10. Silver nitrate used for any petechial bleeding as necessary. Patient chooses, no pharmaceutical tx (23110).? * Procedure Codes:?18516 DEBRI DE NAIL, 6 OR MORE * Preventive Medicine:? ??Counseling:?Tobacco use:?Type of Tobacco Use Cessation Counseling provided?Smoking effects education ?Patient counseled on the dangers of smoking and urged to quit:?12/19/2023 ?Discussion:?-14: Office or other outpatient visit for the evaluation and management of an established patient, which required a medically appropriate history and/or examination and MODERATE level of DECISION MAKING for: 1 OR MORE CHRONIC PROBLEM(S) THATS WORSENING, 2 STABLE CHRONIC PROBLEMS, A NEWLY DIAGNOSED PROBLEM WITH UNCERTAIN PROGNOSIS, AN ACUTE COMPLICATED INJURY WITH MULTIPLE TREATMENT OPTIONS, OR AN ACUTE PROBLEM WITH ACCOMPANYING SYSTEMIC SYMPTOMS, THAT POSE(S) A MODERATE RISK OF MORBIDITY. THIS CONDITION MAY ALSO INCLUDE RX DRUG MANAGEMENT, OR A DECISON FOR MINOR SURGERY. The visit on the day of the encounter encompassed interpreting the data and educating the patient as to the nature of their condition, treatment options available according to their individual PMH, meds, allergies, and overall health/living conditions, as well as any potential risks or complications that may occur from a failure to adhere to, and participate in, the recommended course of therapy. The discussion included a complete verbal, and/or written explanation of the examination results, any x-rays taken, the proposed diagnosis, and outline of the treatment plan. A schedule for future care needs was also explained. The patient verbalized an understanding of the instructions at this time and agreed to be an active participant in their treatment. If the patient should think of any questions or concerns after the visit, I have encouraged the patient to call the office.?Digital Surgery:?Digital surgery was discussed with the patient, We elected to try conservative treatment at the present time, due to the patients medical history and increased asssociated post-operative risks.?Digital Treatment:?HT- I explained to the patient the possible etiologies of Hammertoes, including genetics/foot type/shoegear/activity level/exercise routine and the risks/benefits of all the different treatment options for their pain including: No treatment at all, Rest, Ice, New/supportive/wider/deeper Shoegear, Digital Padding/Strapping/Taping/Bracing/Gel protective sleeves, Foot/Ankle AFO Bracing, Stretching exercises, Deep Tissue Massage, Arch support/shoe inserts with splay metatarsal padding, and Custom orthoses. I insisted that any digital devices be removed daily and not worn overnight for safety. The patient is to carefully examine the toes daily for any skin irritation while using any splinting or padding device. The advantages and disadvantages of each option were discussed and the patients questions re: shoegear, padding, custom vs prefabricated inserts, activity level, and consistency in home treatment regimens for optimal success were answered to their verbally confirmed satisfaction.?Shoe Gear Counseling:?SHOE Rx - The patient was counseled in great detail on their muscoloskeletal foot and toe deformities which coincided with the dermatological presentations visualized on exam. We discussed how their deformities put the integrity of their feet at risk for potential pedal complications which makes the accomidative diabetic shoes and cutomizable inserts medically necessary. We discussed the different shoe and insert treatment types and options, as well as the important advantages for adhering to regularly wearing these accomidative devices daily. The patient was made aware of the fact that a failure to abide by these recommedations may be deleterious to their foot health as they are able to prevent many pedal complications such as skin irritation, skin ulceration, infection, and even loss of toe/foot/leg/or life. Time was also spent with the patient dispensing and discussing proper diabetic footcare techniques including daily skin moisturization, daily foot inspection for any interruption in skin integrity including open lesions, or sign of infection such as redness/malodor/drainage/swelling. Also discussed and recommended were procedures regarding daily shoe inspection for the presence of internal foreign bodies as well as any visualized irregular shoe or insert wear. Patient questions re: shoes, inserts, and self foot inspections were answered to their satisfaction as the patient verbally confirmed a full understanding of the above information. A Rx for Extra Depth Orthopedic Shoes with 3 pair of custom heat-molded inserts was dispensed.? ??Screening/Special Tests:?Fall Risk?Screening:?No falls in the past year ?FALLS: Screening for Future Fall Risk?Have you had any falls with injury in the past year??No * Follow Up:?1 Year * Images: * Sign off status: Completed true * Provider:?Trent Galan DPM Date:?2023 Generated for Navid dyer/Ester/Noel on:?09/25/2024 10:27 AM EDT History and Physical Notes * HPI (History of Present Illness) Category Sub-Category Detail Notes Category Not es Toe pain Location: B/L feet Duration: several years Course: worse Aggravated by: shoes, any pressure Treatments: change in shoes At Risk footcare Pt States Last PCP Visit: Date: 4 Examination Category Sub-Category Detail Notes Category Not es Neurological SENSORY: Neurological exa m reveals intact sensorium, pain sensation normal, vibration sensation intact, pinprick sensation is normal in the lower extremities, 5.07 monofilament test , normal, B/L, Pt denies, anesthesia, burning, paresthesia, tingling, B/L Dermatologic SKIN FINDINGS: Skin exam reveal s Keratotic lesion(s) located at, Medial plantar, IPJ, TA, Medial plantar, IPJ, T5 Orthopedic FOOT MORPHOLOGY: No Charcot trevor apse/destruction noted at MTJ FOOTWEAR EVALUATION: worn, OT were inspe cted and noted to be severely worn , in poor condition not giving proper support at the present time, shoe gear properties exacerbate patient's foot/toe deformity DIGITAL DEFORMITIES: Digital contracture , PIPJ, 2-5 B/L, incompl-reducible to push-up test, no over, nor underlapping, with evidence of shoe producing skin irritation MUSCLE STRENGTH: 5/5 all groups in a symmetrical fashion , B/L General Examination GENERAL APPEARANCE: Reveals a pleasant, alert, well nourished, well-developed, well hydrated individual, who demonstrates proper attention to hygiene/body habitus, and is in no acute distress, Pt serves as own historian for office visit today FOOT EXAM: Lower Extremity Neurological Exa m performed:: Yes Visual exam of foot performed:: Yes Date: 12/19/2023 ORIENTED: person, place, and t libra Footwear Evaluation Footwear Evaluation performe d:: Yes Ophthalmology Referral DIABETES EYE EXAM Procedure Perform ed:: Yes ?Date of Exam Performed: 10/24/2023 Vascular DP PULSES (B): 2/4, B/L PT PULSES (B): 2/4, B/L CAPILLARY FILL TIME: 3 secs. per digit, B/L TEMPERTURE GRADIENT (C): decreased, cool to cool, proximal to distal, B/L TROPHIC CONDITION-TEXTURE/ELASTICITY/TURGOR/HAIR GROWTH (B): decreased, B/L EDEMA (C): absent, B/L PIGMENTATION: mottled, B/L Nails NAILS are: Elongated, overg rown, dystrophic, greater than 3mm thick, lytic, discolored and friable with crumbly malodorous subungual debris, with pain on palpation, TA, T1, T2, T4, T5, T6, T9
--- OUTSIDE RECORDS SUMMARY | 2024-09-25 10:27 | XMS_ITS ---
Author Organization [facility] Address [address] [place] [address] Care Team Providers Care Spool Carrier Name Role Phone Taniya Ibarra MD Primary Care Provider Unavail able Trent Galan Unavailable [phone] rivera Encounters Encounter Location Date Provider Diagnosis [address] [phone] 10/10/2023 Trent Galan Plan Of Treatment Next Appt Details Provider Name:Trent Galan , 12/17/2024 08:30:00 AM, [address] [place] [address], [place] [address], [place], [phone], Progress Notes * Ledy LAUGHLIN EDOB:1965 ( 59 yo F)Acc No.[id number]:10/10/2023 Progress Note Patient:?Ledy LAUGHLIN Provider:?Trent Galan DPM :1965???Age:58 Y???Sex:Female D ate:10/10/2023 Address:[address], [id number] Pcp:Taniya Ibarra MD Subjective: * Chief Complaints: * ???1. Dr. rivera. * Medical History:? Objective: * Vitals:? Assessment: Plan: * Treatment: * Images: * The named appointment provid er may or may not be the originator of this progress note, and it is not deemed complete until electronically signed by the appointment provider. Sign off status: Pending * Provider:Spencer Galan DPM Date:?2023 Generated for Navid dyer/Ester/Noel on:?09/25/2024 10:27 AM EDT
--- OUTSIDE RECORDS SUMMARY | 2024-09-25 10:27 | XMS_ITS ---
Author Organization [facility] Address [address] [place] [address] Care Team Providers Care Women[facility] Nurse Practitioner Name Role Phone Fred CORONEL, Taniya Primary Care Provider Unavail able Trent Galan Unavailable [phone] Encounters Encounter Location Date Provider Diagnosis [address] [address] 07/30/2023 Trent Galan Plan Of Treatment Next Appt Details Provider Name:Trent Galan , 12/17/2024 08:30:00 AM, [address] [place] [address], [phone], Progress Notes * Ledy LAUGHLIN EDOB:1965 ( 59 yo F)Acc No.[id number]:07/30/2023 Progress Note Patient:?Ledy LAUGHLIN Provider:?Trent Galan DPM :1965???Age:58 Y???Sex:Female D ate:07/30/2023 Address:[address], [place], [place]-[id number] Pcp:Taniya Ibarra MD Subjective: * Chief Complaints: * ??? * Medical History:? Objective: * Vitals:? Assessment: Plan: * Treatment: * Images: * The named appointment provid er may or may not be the originator of this progress note, and it is not deemed complete until electronically signed by the appointment provider. Sign off status: Pending * Provider:?Trent Galan DPM Date:?2023 Generated for Navid dyer/Ester/Noel on:?09/25/2024 10:27 AM EDT
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
--- OUTSIDE RECORDS SUMMARY | 2024-09-25 10:28 | XMS_ITS | Data Portability ---
Author Organization [facility], PAIN OFFICE Address [address] [facility] [address] [place] [address] Care Team Providers Care Manager Of Regulatory Affairs Name Role Phone ERASMO KLEIN Primary Care Provider JEFE FLOREZ Referring Provider Assessment Encounter Date Assessment Date Assessment LastModified by Organization Details LastModified Time 10/03/2018 10/03/2018 Ledy Laughlin is a 53 year old woman with neck pain radiating into upper back, right is greater than left. She has myofascial pain syndrome in her upper back. Trigger points were palpated with reproduction of her pain in the right trapezius muscle and paraspinal muscle in the cervical spine. Trial of trigger point injections in right trapezius muscle under ultrasound guidance were discussed with her. The risks and benefits of the procedure were discussed and she wishes to proceed and an appointment has been made for the same. [email or web address] Not available 10/10/2018 08:41:06 10/10/2018 10/10/2018 Ledy Laughlin is a 53 year old woman with neck pain radiating into upper back, right is greater than left. She has myofascial pain syndrome in her upper back. Trigger points were palpated with reproduction of her pain in the right trapezius muscle and paraspinal muscle in the cervical spine. She is here for a trial of trigger point injections in right trapezius muscle under ultrasound guidance. The risks and benefits of the procedure were discussed and she wishes to proceed . She can follow up in two weeks for a repeat injection. [email or web address] Not available 10/10/2018 11:17:39 10/31/2018 10/31/2018 Ledy Laughlin is a 53 year old woman with neck pain radiating into upper back, right is greater than left. She has myofascial pain syndrome in her upper back. Trigger points were palpated with reproduction of her pain in the right trapezius muscle and paraspinal muscle in the cervical spine. She is here for a trigger point injection in right trapezius muscle under ultrasound guidance. The risks and benefits of the procedure were discussed and she wishes to proceed . She can follow up in two weeks for a repeat injection. [email or web address] Not available 11/13/2018 08:54:38 11/13/2018 11/13/2018 Ledy Laughlin is a 53 year old woman with neck pain radiating into upper back, right is greater than left. She has myofascial pain syndrome in her upper back. Trigger points were palpated with reproduction of her pain in the right trapezius muscle and paraspinal muscle in the cervical spine. She is here for a trial of trigger point injections in right trapezius and paraspinal muscle under ultrasound guidance. The risks and benefits of the procedure were discussed and she wishes to proceed . She can follow up as needed. [email or web address] Not available 11/13/2018 11:48:34 Plan of Treatment Reminders Order Date Submit Date Provider Last Modified By Organization Details Last Modified Time Details Appointments None record ed. Lab None record ed. Referral None record ed. Procedures None record ed. Surgeries None record ed. Imaging None record ed. Medication Orders None record ed. Patient TargetsNo targets recorded. Patient Instructions Encounter Date Encounter Id Patient Instructions Last Modified By Organization Details Last Modified Time 10/10/2018 [id number] She was advised against bed rest lasting longer than four days and to continue activities as tolerated. [email or web address] Not available 10/10/2018 11:16:54 10/31/2018 [id number] She was advised against bed rest lasting longer than four days and to continue activities as tolerated. [email or web address] Not available 11/13/2018 08:53:10 11/13/2018 [id number] She was advised against bed rest lasting longer than four days and to continue activities as tolerated. [email or web address] Not available 11/13/2018 11:45:55 Reason for Referral None Reported. Problems Name Problem SNOMED Code Status Onset Date Resolution Date Notes Provider Name and Address Organization Details Recorded Time Muscle pain 86803383 Active Berlin smith MD [address] [place] [address] , [address], [facility] [place], [address], [place] [facility] 9 11:59:53 Degeneration of cervical intervertebral disc 03405792 Active Berlin smith MD [address] [facility] , [address], [place], [address], [place] [facility] 9 12:00:07 Problem Notes None recorded. Procedures Surgical History Date Name Laterality Status Provider Name and Address Organization Details Recorded Time 11/14/19 19 Trigger Point Injections under ultrasound guidance completed Berlin Willson MD [address] [facility] , [address], [place], [address], [place] [facility] 11/13/2018 11:46:05 11/01/19 19 Trigger Point Injections under ultrasound guidance completed Berlin Willson MD [address] [facility] , [address], [place], [address], [place] [facility] 11/13/2018 08:53:25 10/11/19 19 Trigger Point Injections under ultrasound guidance completed Berlin Willson MD [address] [facility] , [address], [place], [address], [place] [facility] 10/10/2018 11:15:58 Other completed Daniellarossi Headleyer [place] [facility] 10/03/2018 10:11:51 Other completed Daniellarossi Headleyer [place] [facility] 10/03/2018 10:12:20 section completed Daniellarossi Canchola [place] [facility] 10/03/2018 10:18:11 Other completed Daniellarossi Headleyer [place] [facility] 10/03/2018 10:18:59 Other completed Daniella Headleyer [place] [facility] 10/03/2018 10:19:16 Hysterectomy completed Daniella Canchola [place] [facility] 10/03/2018 10:19:33 Imaging Results None recorded. Procedure Notes None recorded. Medical Equipment None Reported. Allergies No known drug allergies Medications Name Sig Start Date Stop Date Status Note LastModified by Organization Details LastModified Time metformin 500 mg tablet 10/03 completed Not Available Not Available Not Available oxybutynin chloride ER 10 mg tablet,exte nded release 24 hr active Not Available Not Available Not Available glyburide 5 mg tablet 1 tab bid active Not Available Not Available Not Available prednisone 20 mg tablet 10/03 completed Not Available Not Available Not Available Accu-Chek Softclix Lancets active Not Available Not Available Not Available metronidazo le 500 mg tablet 10/03 completed Not Available Not Available Not Available tramadol 50 mg tablet 10/03 completed Not Available Not Available Not Available temazepam 15 mg capsule 10/03 completed Not Available Not Available Not Available gemfibrozil 600 mg tablet bid active Not Available Not Available Not Available simvastatin 20 mg tablet active Not Available Not Available Not Available Mapap (acetaminop hen) 325 mg tablet TAKE 2 TABLETS BY MOUTH EVERY 4 HOURS FOR 7 DAYS 10/03 completed Not Available Not Available Not Available gabapentin 300 mg capsule 2 tabs in AM and Noon , 1 tab at pm active Not Available Not Available No t Available lisinopril 5 mg tablet active Not Available Not Available Not Available gabapentin 100 mg capsule 10/03 completed Not Available Not Available Not Available lorazepam 1 mg tablet active Not Available Not Available No t Available levofloxaci n 750 mg tablet 10/03 completed Not Available Not Available Not Available methylpredn isolone 4 mg tablets in a dose pack 10/03 completed Not Available Not Available Not Available albuterol sulfate HFA 90 mcg/actuati on aerosol inhaler INHALE 2 PUFFS INTO THE LUNGS 4 TIMES A DAY active Not Available Not Available No t Available oxycodone 5 mg tablet 10/03 completed Not Available Not Available Not Available cyclobenzap rine 5 mg tablet 10/03 completed Not Available Not Available Not Available duloxetine 60 mg capsule,del ayed release active Not Available Not Available Not Available Centrum active Not Available Not Avail able Not Available peg 3350-electr olytes 236 gram-22.74 gram-6.74 gram-5.86 gram solution 10/03 completed Not Available Not Available Not Available Accu-Chek Chely Plus test strips active Not Available Not Available Not Available Chantix Continuing Month Box 1 mg tablet active Not Available Not Available No t Available Chantix Starting Month Box 0.5 mg (11)-1 mg (42) tablets in dose pack 10/03 completed Not Available Not Available Not Available Accu-Chek Chely Plus Meter USE DIRECTED active Not Available Not Available No t Available Readi-Cat 2 2 % (w/v) oral suspension 11/13 completed Not Available Not Available Not Available Vitals Date Recorded Heart rate Oxygen saturation Oxygen saturation in Arterial blood by Pulse oximetry Body height Body mass index (BMI) Body weight Systolic blood pressure Diastolic blood pressure Provider Name and Address Organization Details Last Updated DateTime 9 79 /min 98 % 98 % 154.94 cm 31.2 kg/m2 11859.7 4 g 158 mm[Hg] 76 mm[Hg] Daniella Canchola [facility] 9 10:04:58 Date Recorded Body height Heart rate Oxygen saturation Oxygen saturation in Arterial blood by Pulse oximetry Systolic blood pressure Diastolic blood pressure Provider Name and Address Organization Details Last Updated DateTime 9 154.94 cm 74 /min 98 % 98 % 178 mm[Hg] 80 mm[Hg] Daniellarossi SantosCanchola [facility] 9 10:29:13 Date Recorded Body height Heart rate Oxygen saturation Oxygen saturation in Arterial blood by Pulse oximetry Systolic blood pressure Diastolic blood pressure Provider Name and Address Organization Details Last Updated DateTime 9 154.94 cm 76 /min 98 % 98 % 147 mm[Hg] 83 mm[Hg] Daniellarossi SantosCanchola [place] [facility] 9 10:44:26 Date Recorded Body height Heart rate Oxygen saturation Oxygen saturation in Arterial blood by Pulse oximetry Systolic blood pressure Diastolic blood pressure Provider Name and Address Organization Details Last Updated DateTime 9 154.94 cm 69 /min 98 % 98 % 144 mm[Hg] 95 mm[Hg] Daneillarossi SantosCanchola [facility] 9 10:27:03 Social History Question Answer Notes LastModified by Organizat ion Details LastModified Time Tobacco Smoking Status Current Every Day Smoker Not Available [employer] 02/27/2020 03:16:11 Which Illicit Or Recreational Drugs Have You Used? No [id number] Information not available 02/27/2020 Education [employer] Information not available 10/03/2018 Live Alone Or With Others? With Others Information not available 10/03/2018 Marital Status Informatio n not available 10/03/2018 What Was The Date Of Your Most Recent Tobacco Screening? 11/13/2018 [id number] Information not available 02/27/2020 How Much Tobacco Do You Smoke? 1.5 PPD [id number] Information not available 02/27/2020 How Many Years Have You Smoked Tobacco? 35 [id number] Information not available 02/27/2020 Sex: Unknown Functional Status Question Answer Note LastModified by Organization D etails LastModified Time What is your level of alcohol consumption? Moderate [id number] Information not available 02/27/2020 Are you currently employed? No [id number] Information not available 02/27/2020 What is your occupation? Retired [id number] Information not available 02/27/2020 Mental Status None recorded. Family History Relationship Description Onset Age of this Age Resolved Age Notes LastModified by Organization Details LastModified Time Father Heart disease [email or web address] Not available 2018 10:14:18 Father Diabetes mellitus [email or web address] Not available 2018 10:14:36 Mother Diabetes mellitus [email or web address] Not available 2018 10:14:36 Medical History Condition Response Diabetes Y Arthritis Y Hypertension Y Asthma Y High Cholesterol Y Gynecological HistoryNo gynecological history recorded. Obstetrics History GPAL:G 0 P 0 0 0 0 Past Encounters Encounter ID Performer Location Encounter Start Date Encounter Closed Date Diagnosis/Indication Diagnosis SNOMED-CT Code Diagnosis ICD10 Code Diagnosis Note [id number] Berlin Willson MD PAIN OFFICE [address] [facility] [place] [address] 10/03/2018 10:01:45 10/04/2018 11:59:25 Degeneration of cervical intervertebral disc 74680654 M50.30 Muscle pain 43542563 M79 .18 [id number] Berlin Willson MD PAIN OFFICE [address] [facility] [facility] [place] [address] 10/10/2018 10:15:01 10/10/2018 11:18:33 Degeneration of cervical intervertebral disc 20054504 M50.30 Muscle pain 33266175 M79 .18 [id number] Berlin Willson MD PAIN OFFICE [address] [place] [address] 10/31/2018 10:13:09 11/13/2018 08:55:33 Degeneration of cervical intervertebral disc 42562711 M50.30 Muscle pain 61786742 M79 .18 [id number] Berlin Willson MD PAIN OFFICE [address] [facility],[address] [place] [address] 11/13/2018 09:42:13 11/13/2018 11:49:39 Degeneration of cervical intervertebral disc 95002582 M50.30 Muscle pain 63058594 M79 .18 Health Concerns Section Related Observation LastModified by Organization Detai ls LastModified Time None Recorded Concern Status LastModified by Organization Details LastModified Time None Recorded Advance Directives Directive None Recorded Payers Encounter Date Sequence Insurance Name Policy Number Policy Olea Covered Member ID Olea Member ID Guarantor Name 10/03/2018 1 [employer] (POS) Ledy Ayrshire [id number] [facility] 10/03/2018 2 [place] [facility] [id number] 3 [facility] 10/10/2018 1 [employer] (POS) [facility] [id number] [facility] 10/10/2018 2 [place] [facility] Ledy Ayrshire [id number] 3 [facility] 10/31/2018 1 [employer] (POS) Ledy Ayrshire [id number] [facility] 10/31/2018 2 [place] [facility] Ledy Ayrshire [id number] 3 [facility] 11/13/2018 1 [employer] (POS) [facility] [id number] [facility] 11/13/2018 2 [place] [facility] [id number] 3 [facility] Notes Date Note Type Note Provider Name and Address Organization Details Recorded Time 10/03/2018 text/html Ledy Laughlin is a [age] year old Right handed woman with complaints of neck pain radiating into upper back, right is greater than left. She has no radiating symptoms in her upper extremities. The pain started spontaneously years ago and is becoming greater for the past 3 months. She describes the pain as a burning, shooting pain and associated with headaches . Current pain level is 5-9/10. Turning to the right , working on the computer, reading, stress and standing for long periods of time aggravates her pain. Arnica cream, heat, ice, tramadol relieves the pain. Pain interferes with sleep. She has no history of bladder or bowel incontinence.She has trialed physical therapy with traction and had minimal pain benefit. She has had steroids injections in her shoulders which has helped. She has trialed massage. She is doing a home stretching exercise program with persistent pain.EMG/NCV study shows bilateral carpal tunnel syndrome and chronic mild C7-T1 radiculopathy. Berlin Willson MD [address] [facility] , [address], [place], [address], [place] - [facility] 10/10/2018 09:40:37 10/10/2018 text/html She is here for a trigger point injections in her right trapezius muscle under ultrasound guidance Berlin Willson MD [address] [facility] , [address], [place], [address], [place] [facility] 10/14/2018 09:20:32 10/31/2018 text/html She is here for a trigger point injections in her right trapezius muscle under ultrasound guidance Berlin Willson MD [address] [facility] [facility] , [address], [place], [address], [place] [facility] 11/13/2018 09:59:24 11/13/2018 text/html She is here for a trigger point injections in her right trapezius and paraspinal muscle in the cervical spine under ultrasound guidance. She reports good pain benefit with last injection and improved range of motion of her neck and shoulders . She has been doing stretching exercises at home. Berlin Willson MD [address] [facility] , [address], [place], [address], [place] - [facility] 11/16/2018 14:44:33 OBGyn Episode No OBEpisode recorded.
[2024-09-25] MEDS: Insulin Lispro 100 UNIT/ML 3 ML VIAL 8 UNIT SUBCUT (10:35)
[2024-09-25 10:36] LABS: Alkaline Phosphatase 79 U/L (39-117)
[2024-09-25 10:37] LABS: Influenza A PCR POSITIVE (Negative); Influenza B PCR NEGATIVE (Negative); Resp Syncy Virus RNA Qual PCR NEGATIVE (Negative); SARS COV2 PCR INHOUSE NEGATIVE (Negative)
[2024-09-25] MEDS: Albuterol Sulfate 2.5 MG, Albuterol Sulfate (0.083%) 2.5 MG 5 MG INHALE (10:57)
[2024-09-25 11:04] LABS: Alanine Aminotransferase 26 U/L (0-31)
--- NOTE | 2024-09-25 11:24 | PM.IMHP ---
History of Present Illness Date of Service: 09/25/24 Attending physician on admission: Jc Willingham Chief Complaint: Cough, SOB Pt is a 59-year-old female with a PMH significant for?COPD, dbb-bmxnsuv-gzttcfzsk type 2 diabetes, HTN, HLD, and active smoker 1 pack per day who presents to the ED from urgent care for evaluation of progressive SOB, TYSON, and difficulty breathing. Pt reports symptoms began 5 days ago on Sunday when she began experiencing allergy like symptoms including runny eyes, rhinorrhea, and sneezing. On Sunday pt began developing mostly nonproductive cough, fatigue, myalgias, and progressive SOB. Had TYSON even with simply walking to the bathroom. Denies sick contacts. No fever or chills. Two days ago pt presented to urgent care and was prescribed doxycycline and prednisone. pt compliant with medications though they offered no relief. Pt re-presented to the urgent care earlier today as SOB increased and she simply ?could not breathe?. At urgent care pt was found to be hypoxic in the mid 80s and with diffuse wheezing, so was brought to the ED by ambulance. Denies chest pain/pressure, palpitations. In the ED pt was tachycardic up to 93, tachypneic up to 29, hypertensive at 159/79, and desatting to 87% on RA. Labs were significant for testing positive for flu, glucose 311, and AST 50. No leukocytosis. Stable H&H. No significant electrolyte abnormalities. Renal function baseline. Lactic acid WNL at 1.5. Troponin WNL. BNP WNL. CXR showed streaky opacities in RUL concerning for early pneumonia. EKG demonstrated normal sinus rhythm without evidence of significant ST elevations or depressions. Pt was treated in the ED with Solu-Medrol, DuoNebs, IVF, lispro 8 units, ceftriaxone, and azithromycin. Pt is admitted to the hospital acute hypoxic respiratory failure in the setting of COPD exacerbation secondary to influenza infection with underlying pneumonia with sepsis. Review of Systems Review of Systems: Negative except for that which is stated in the HPI. Yes all other systems are reviewed and are negative [facility] Social History Household Members: Spouse Housing: House Do you presently have visiting nurse or other home services: No Patient Tobacco Use Status: Current everyday Tobacco user Cigarette Packs Per Day: 1 Cigarettes Per Day: 20.0 Smoked in Last 30 Days: Yes Patient Interested in Nicotine Replacement: No Currently Displaying Signs/Symptoms of Drug Intoxication Withdrawal: No Have you been hit, kicked, punched, or otherwise hurt by someone within the past year? If so, by whom?: No Do you feel safe in your current relationship?: Yes Is there a partner from a previous relationship who is making you feel unsafe now?: No Are you made to feel afraid or neglected: No Advance Directives: No Advance Directives Information Provided: Yes Do you have a plan to hurt others: No Plan Recently lost weight without trying: No How much weight loss: Not applicable Eating poorly because of decreased appetite: No Nutrition screen score: 0 Nutrition Risks: No Nutritional Risk Patient : No : No Poor oral hygiene: No Meds Allergies Allergy/AdvReac Type Severity Reaction Status Date / Time No Known Allergies Allergy Verified 09/25/24 09:20 Home Medications ?Medication ?Instructions ?Recorded ?Confirmed ?Last Taken ?Type albuterol sulfate 90 mcg/actuation 2 puff inhalation Q4H PRN 09/25/24 09/25/24 09/24/24 History aerosol inhaler Shortness Of Breath Or Wheezing aripiprazole 15 mg tablet 15 mg PO DAILY 09/25/24 09/25/24 09/24/24 History doxycycline hyclate 100 mg tablet 100 mg PO BID 09/25/24 09/25/24 09/25/24 History duloxetine 60 mg capsule,delayed 120 mg PO DAILY 09/25/24 09/25/24 09/24/24 History release fenofibrate nanocrystallized 145 145 mg PO DAILY 09/25/24 09/25/24 09/24/24 History mg tablet fluticasone 100 mcg-salmeterol 50 1 ea inhalation BID 09/25/24 09/25/24 09/24/24 History mcg/dose blistr powdr for inhalation (Richa Peterson) gabapentin 300 mg capsule 600 mg PO TID 09/25/24 09/25/24 09/24/24 History glyburide 5 mg tablet 10 mg PO BID 09/25/24 09/25/24 09/24/24 History lamotrigine 100 mg tablet 200 mg PO BEDTIME 09/25/24 09/25/24 09/24/24 History lisinopril 5 mg tablet 5 mg PO DAILY 09/25/24 09/25/24 09/24/24 History lorazepam 1 mg tablet 1 mg PO BID PRN Anxiety 09/25/24 09/25/24 09/24/24 History lorazepam 1 mg tablet 2 mg PO BEDTIME 09/25/24 09/25/24 09/24/24 History multivitamin 1 tab PO DAILY 09/25/24 09/25/24 09/24/24 History mv-min-vit C 1,000 1 ea PO DAILY 09/25/24 09/25/24 09/24/24 History tk-azdkpianw-koxsnn-herb 124 50 mg efferves tablet (Immune Support) pioglitazone 45 mg tablet 45 mg PO DAILY 09/25/24 09/25/24 09/24/24 History prednisone 20 mg tablet 20 mg PO BID 09/25/24 09/25/24 09/25/24 History simvastatin 20 mg tablet 20 mg PO BEDTIME 09/25/24 09/25/24 09/24/24 History Physical Exam Vital Signs and Narrative: Vital Signs: Last Vital Signs Temp 98.3 F 09/25/24 10:00 Pulse 93 09/25/24 10:50 Resp 20 09/25/24 10:50 BP 157/75 H 09/25/24 10:00 Pulse Ox 90 L 09/25/24 10:00 O2 Del Method Nasal Cannula 09/25/24 10:00 O2 Flow Rate 4 09/25/24 10:00 BMI result Body Mass Index 32.3 General: AOx3, no acute distress Resp: Mild wheezing with poor airflow CVS: S1, S2, RRR GI: +BS, NT, no distention Skin: Warm, dry Neuro: Cranial nerves II-XII grossly intact bilaterally. Motor grossly intact bilaterally Extremities: No edema Psych: Appropriate affect Results Labs 09/25/24 09:52 09/25/24 09:52 Labs: Laboratory Results - last 24 hr 09/25/24 09/25/24 09/25/24 09:51 09:52 09:53 MCV 96.9 MCH 33.1 H MCHC 34.1 RDW 13.8 Plt Count 187 MPV 10.3 Immature Gran % (Auto) 0.5 H Neut % (Auto) 86.7 H Lymph % (Auto) 9.6 L [place] % (Auto) 3.0 Eos % (Auto) 0.0 Baso % (Auto) 0.2 Lymph # (Auto) 1.0 L [place] # (Auto) 0.3 Eos # (Auto) 0.0 Baso # (Auto) 0.0 Abs Immat Gran (auto) 0.05 H Absolute Neuts (auto) 9.4 H Absolute Nucleated RBC 0.000 Nucleated RBC % (auto) 0.0 VBG pH VBG pCO2 VBG pO2 VBG HCO3 VBG O2 Saturation VBG Base Excess Anion Gap 19 Estim Creat Clear Calc 78.2 Estimated GFR > 60 Random Glucose 311 H Lactic Acid 1.5 Calcium 9.5 Magnesium 2.5 Total Bilirubin 0.5 Direct Bilirubin 0.2 AST 50 H ALT 26 Alkaline Phosphatase 79 B-Natriuretic Peptide 90 Total Protein 7.6 Albumin 4.3 Influenza Type A (PCR) POSITIVE A Influenza Type B (PCR) NEGATIVE RSV RNA Qual (PCR) NEGATIVE SARS-CoV-2 RNA (RT-PCR) NEGATIVE 09/25/24 10:01 MCV MCH MCHC RDW Plt Count MPV Immature Gran % (Auto) Neut % (Auto) Lymph % (Auto) [place] % (Auto) Eos % (Auto) Baso % (Auto) Lymph # (Auto) [place] # (Auto) Eos # (Auto) Baso # (Auto) Abs Immat Gran (auto) Absolute Neuts (auto) Absolute Nucleated RBC Nucleated RBC % (auto) VBG pH 7.34 VBG pCO2 49 VBG pO2 48 VBG HCO3 27 H VBG O2 Saturation 76.0 VBG Base Excess 0.5 Anion Gap Estim Creat Clear Calc Estimated GFR Random Glucose Lactic Acid Calcium Magnesium Total Bilirubin Direct Bilirubin AST ALT Alkaline Phosphatase B-Natriuretic Peptide Total Protein Albumin Influenza Type A (PCR) Influenza Type B (PCR) RSV RNA Qual (PCR) SARS-CoV-2 RNA (RT-PCR) Imaging Radiologist's Impressions: Impressions Chest X-Ray 09/25/24 09:38 IMPRESSION: Streaky opacities in the right upper lung zone may represent early pneumonia. Follow-up is recommended to document resolution. Electronically signed by: Melvin aGrcia MD 09/25/2024 10:02 AM EDT Assessment and Plan (1) Influenza A: Status: Acute (2) Acute exacerbation of chronic obstructive airways disease: Status: Acute (3) Community acquired pneumonia: Qualifiers: Laterality: right Lung location: unspecified part of lung Qualified Code(s): J18.9 - Pneumonia, unspecified organism Status: Acute Plan Pt is a 59-year-old female with a PMH significant for?COPD, bqg-mecfjnb-vqmbylqno type 2 diabetes, HTN, HLD, and active smoker 1 pack per day who presents to the ED from urgent care for evaluation of progressive SOB, TYSON, and difficulty breathing. Pt is admitted to the hospital acute hypoxic respiratory failure in the setting of COPD exacerbation secondary to influenza infection with underlying pneumonia with sepsis. Acute hypoxic respiratory failure in setting of COPD exacerbation secondary to influenza infection with underlying pneumonia with sepsis Pt with SOB, TYSON, fatigue, myalgias, and cough x5 days Flu+, CXR with possible early pneumonia, desatting to 87% on RA Meets SIRS criteria with tachycardia and tachypnea; lactic acid WNL at 1.5 Will treat with ceftriaxone azithromycin, started 09/25/2024 DuoNebs, Solu-Medrol, guaifenesin Titrate supplemental O2 >92, wean as tolerated Monitor respiratory status Kbd-kforjry-jhdqaskvu type 2 diabetes Pt has been hyperglycemic while in the hospital Sliding-scale insulin, diabetic diet HTN Continue lisinopril HLD Continue statin Mood disorder Continue lamotrigine, lorazepam, and omeprazole Full Code Attending:?Dr. Willingham DVT Prophylaxis: Lovenox Pt will require a hospitalization of at least two nights for treatment of?acute hypoxic respiratory failure in the setting of COPD exacerbation secondary to influenza type a infection with underlying pneumonia with sepsis. Pt will require hospital level care for administration of IV antibiotics, IV steroids, breathing treatments, supplemental oxygen, and close monitoring of respiratory status. Quality Stroke Does the patient have a stroke diagnosis?: No VTE Prior VTE?: No VTE Risk Level:: Medical - moderate - high VTE Device Contraindication: Treatment Not Indicated VTE Drug Contraindication: N/A - Med Ordered
--- NOTE | 2024-09-25 11:33 | PHA.MEDREC ---
Addendum entered by Alvaro Alex [facility] 09/25/24 11:47: MED REC CHECKED BY [facility] Original Note: Pharmacy Consult ? Medication Reconciliation Pharmacy has completed the medication reconciliation. Spoke with patient and she confirmed her medications. She confirmed she started the Doxycycline and Prednisone regimens Saturday 09/23. She confirmed she takes her Lorazepam 1mg tab 2 tabs at bedtime scheduled and 1 tab BID as needed for anxiety.
[2024-09-25] MEDS: Enoxaparin Sodium 40 MG/0.4 ML SYRINGE SUBCUT (15:23)
[2024-09-25] MEDS: 0.9 % Sodium Chloride Flush 3 ML SYRINGE IVFLUSH ×2 (15:24→21:04)
[2024-09-25 16:17] LABS: Glucose, Whole Blood 366 mg/dL (60-115)
[2024-09-25] MEDS: Insulin Lispro 100 UNIT/ML 3 ML VIAL SUBCUT ×2 (16:49→21:20)
[2024-09-25] MEDS: Albuterol/Iprat 2.5/0.5MG 3 ML AMPUL.NEB INHALE ×2 (17:00→19:21)
[2024-09-25 20:42] LABS: Glucose, Whole Blood 307 mg/dL (60-115)
[2024-09-25] MEDS: Gabapentin 300 MG CAPSULE 600 MG PO (21:03)
[2024-09-25] MEDS: lamoTRIgine 100 MG TABLET 200 MG PO (21:03)
[2024-09-25] MEDS: glyBURIDE 5 MG TABLET 10 MG PO (21:03)
[2024-09-25] MEDS: Atorvastatin Calcium 10 MG TABLET PO (21:03)
[2024-09-25] MEDS: LORazepam 1 MG TABLET 2 MG PO (21:03)
[2024-09-25] MEDS: methylPREDNISolone Sod Succ 40 MG/ML VIAL IVPUSH (21:04)
[2024-09-25] MEDS: guaiFENesin DM 200/20/10 ML 10 ML SYRUP PO (21:20)
[2024-09-26] VITALS (8 sets, daily range): BP systolic 143–152; BP diastolic 65–82; PULSE 70–88; RESP 16–20; TEMP 36.4–37.1; O2SAT 91–94
[2024-09-26] MEDS: guaiFENesin DM 200/20/10 ML 10 ML SYRUP PO ×3 (02:22→13:58)
--- NOTE | 2024-09-26 07:51 | HO.PM.IMPN ---
Subjective Subjective Date of Service: 09/26/24 Interval History: pneumonia /flu Review of Systems sob with minimal excersion has cough no fever or chest pain Review of Systems: Yes all other systems are reviewed and are negative Physical Exam Vital Signs: Vital Signs: Last Vital Signs Temp 98.1 F 09/26/24 03:44 Pulse 70 09/26/24 03:44 Resp 20 09/26/24 03:44 BP 147/72 H 09/26/24 03:44 Pulse Ox 94 09/26/24 03:44 O2 Del Method Nasal Cannula 09/26/24 03:44 O2 Flow Rate 4 09/26/24 03:44 BMI result Body Mass Index 32.3 General: AOx3, no acute distress Resp: air entry dimished ,has b/l wheezing CVS: S1, S2, RRR GI: +BS, NT, no distention Skin: Warm, dry Neuro:non focal. Objective Data Active Medications Acetaminophen (Acetaminophen 325 Mg Tablet) 650 mg PO Q6H PRN PRN Reason: Pain, Mild 1-3,fever,headache Albuterol/Ipratropium (Albuterol/Iprat 2.5/0.5mg 3 Ml Ampul.Neb) 3 ml INHALE RQ4H WHILE AWAKE [facility] Last Admin: 09/25/24 19:21 Dose: 3 ml Documented By: RAJ Aripiprazole (Aripiprazole 15 Mg Tablet) 15 mg PO DAILY [facility] Atorvastatin Calcium (Atorvastatin Calcium 10 Mg Tablet) 10 mg PO BEDTIME [facility] Last Admin: 09/25/24 21:03 Dose: 10 mg Documented By: LEW Calcium Carbonate (Calcium Carbonate 750 Mg Tab.Chew) 750 mg PO Q4H PRN PRN Reason: Heartburn Ceftriaxone Sodium (Ceftriaxone Sodium 1 Gm Vial) 1 gm IVPUSH Q24H [facility] Dextrose (Dextrose 50 % 25 Gm/50 Ml Syringe) 25 gm IVPUSH Q15M PRN; Protocol PRN Reason: per Hypoglycemia Standing Ord. Doxycycline Monohydrate (Doxycycline Monohydrate 100 Mg Capsule) 100 mg PO BID [facility] Duloxetine HCl (Duloxetine Hcl 60 Mg Capsule.Dr) 120 mg PO DAILY [facility] Enoxaparin Sodium (Enoxaparin Sodium 40 Mg/0.4 Ml Syringe) 40 mg SUBCUT Q24H [facility] Last Admin: 09/25/24 15:23 Dose: 40 mg Documented By: LEW Fenofibrate (Fenofibrate 160 Mg Tablet) 160 mg PO DAILY [facility] Fluticasone/Vilanterol (Fluticasone/Vilanterol 100/25 Blst.W.Dev) 1 puff INHALE RDAILY [facility] Gabapentin (Gabapentin 300 Mg Capsule) 600 mg PO TID [facility] Last Admin: 09/25/24 21:03 Dose: 600 mg Documented By: LEW Glucose (Glucose Gel 15 Gm Gel..Gram.) 15 gm PO Q15M PRN; Protocol PRN Reason: per Hypoglycemia Standing Ord. Glyburide (Glyburide 5 Mg Tablet) 10 mg PO BID [facility] Last Admin: 09/25/24 21:03 Dose: 10 mg Documented By: LEW Guaifenesin/Dextromethorphan (Guaifenesin Dm 200/20/10 Ml 10 Ml Syrup) 10 ml PO Q4H PRN PRN Reason: Cough Last Admin: 09/26/24 02:22 Dose: 10 ml Documented By: NHUNG Azithromycin 500 mg/ Sodium (Chloride) 250 mls @ 125 mls/hr IV Q24H [facility] Insulin Human Lispro (Insulin Lispro 100 Unit/Ml 3 Ml Vial) 0 unit SUBCUT QIDACHS [facility]; Protocol Last Admin: 09/25/24 21:20 Dose: 8 unit Documented By: LEW Lamotrigine (Lamotrigine 100 Mg Tablet) 200 mg PO BEDTIME [facility] Last Admin: 09/25/24 21:03 Dose: 200 mg Documented By: LEW Lisinopril (Lisinopril 5 Mg Tablet) 5 mg PO DAILY [facility]; Protocol Lorazepam (Lorazepam 1 Mg Tablet) 1 mg PO BID PRN PRN Reason: Anxiety Lorazepam (Lorazepam 1 Mg Tablet) 2 mg PO BEDTIME [facility] Last Admin: 09/25/24 21:03 Dose: 2 mg Documented By: LEW Magnesium Hydroxide (Milk Of Magnesia 30 Ml Oral.Susp) 30 ml PO DAILY PRN PRN Reason: Constipation Melatonin (Melatonin 3 Mg Tablet) 6 mg PO BEDTIME PRN PRN Reason: Insomnia Methylprednisolone Sodium Succinate (Methylprednisolone Sod Succ 40 Mg/Ml Vial) 40 mg IVPUSH Q12H [facility] Last Admin: 09/25/24 21:04 Dose: 40 mg Documented By: LEW Multivitamins/Vitamin C (Multivitamin Tablet) 1 tab PO DAILY [facility] Pioglitazone HCl (Pioglitazone Hcl 45 Mg Tablet) 45 mg PO DAILY [facility] Sodium Chloride (0.9 % Sodium Chloride Flush 3 Ml Syringe) 3 ml IVFLUSH QSHIFT [facility] Last Admin: 09/25/24 21:04 Dose: 3 ml Documented By: LEW Labs 09/25/24 09:52 09/25/24 09:52 Labs: Laboratory Results - last 24 hr 09/25/24 09/25/24 09/25/24 09:51 09:52 09:53 MCV 96.9 MCH 33.1 H MCHC 34.1 RDW 13.8 Plt Count 187 MPV 10.3 Immature Gran % (Auto) 0.5 H Neut % (Auto) 86.7 H Lymph % (Auto) 9.6 L [place] % (Auto) 3.0 Eos % (Auto) 0.0 Baso % (Auto) 0.2 Lymph # (Auto) 1.0 L [place] # (Auto) 0.3 Eos # (Auto) 0.0 Baso # (Auto) 0.0 Abs Immat Gran (auto) 0.05 H Absolute Neuts (auto) 9.4 H Absolute Nucleated RBC 0.000 Nucleated RBC % (auto) 0.0 VBG pH VBG pCO2 VBG pO2 VBG HCO3 VBG O2 Saturation VBG Base Excess Anion Gap 19 Estim Creat Clear Calc 78.2 Estimated GFR > 60 POC Glucose Random Glucose 311 H Lactic Acid 1.5 Calcium 9.5 Magnesium 2.5 Total Bilirubin 0.5 Direct Bilirubin 0.2 AST 50 H ALT 26 Alkaline Phosphatase 79 B-Natriuretic Peptide 90 Total Protein 7.6 Albumin 4.3 Influenza Type A (PCR) POSITIVE A Influenza Type B (PCR) NEGATIVE RSV RNA Qual (PCR) NEGATIVE SARS-CoV-2 RNA (RT-PCR) NEGATIVE 09/25/24 09/25/24 09/25/24 10:01 16:13 20:37 MCV MCH MCHC RDW Plt Count MPV Immature Gran % (Auto) Neut % (Auto) Lymph % (Auto) [place] % (Auto) Eos % (Auto) Baso % (Auto) Lymph # (Auto) [place] # (Auto) Eos # (Auto) Baso # (Auto) Abs Immat Gran (auto) Absolute Neuts (auto) Absolute Nucleated RBC Nucleated RBC % (auto) VBG pH 7.34 VBG pCO2 49 VBG pO2 48 VBG HCO3 27 H VBG O2 Saturation 76.0 VBG Base Excess 0.5 Anion Gap Estim Creat Clear Calc Estimated GFR POC Glucose 366 H* 307 H Random Glucose Lactic Acid Calcium Magnesium Total Bilirubin Direct Bilirubin AST ALT Alkaline Phosphatase B-Natriuretic Peptide Total Protein Albumin Influenza Type A (PCR) Influenza Type B (PCR) RSV RNA Qual (PCR) SARS-CoV-2 RNA (RT-PCR) Assessment and Plan (1) Influenza A: Status: Acute (2) Acute exacerbation of chronic obstructive airways disease: Status: Acute (3) Community acquired pneumonia: Status: Acute Plan 59-year-old female with a PMH significant for?COPD, mfs-uopurvu-zvrhnrptl type 2 diabetes, HTN, HLD, and active smoker 1 pack per day who presents to the ED from urgent care for evaluation of progressive SOB, TYSON, and difficulty breathing. Pt is admitted to the hospital acute hypoxic respiratory failure in the setting of COPD exacerbation secondary to influenza infection with underlying pneumonia with sepsis. Acute hypoxic respiratory failure in setting of COPD exacerbation secondary to influenza infection with underlying pneumonia with sepsis Pt with SOB, TYSON, fatigue, myalgias, and cough x5 days sepsis improving Flu+, CXR with possible early pneumonia, desatting to 87% on RA continue with ceftriaxone azithromycin, started 09/25/2024,DuoNebs, Solu-Medrol, guaifenesin Titrate supplemental O2 >92, wean as tolerated Monitor respiratory status Eoa-opcklpa-ogreyzqbu type 2 diabetes Pt has been hyperglycemic while in the hospital Sliding-scale insulin, diabetic diet HTN Continue lisinopril HLD Continue statin Mood disorder Continue lamotrigine, lorazepam, and omeprazole ongoing need: acute hypoxemic respitroy failure -need oxygen ,iv antibiotics and moniter respiratory status closely Quality Stroke Does the patient have a stroke diagnosis?: No VTE Prior VTE?: No VTE Risk Level:: Medical - moderate - high VTE Device Contraindication: Treatment Not Indicated VTE Drug Contraindication: N/A - Med Ordered
[2024-09-26 07:56] LABS: Glucose, Whole Blood 195 mg/dL (60-115)
[2024-09-26] MEDS: Insulin Lispro 100 UNIT/ML 3 ML VIAL SUBCUT ×4 (08:10→19:59)
[2024-09-26] MEDS: methylPREDNISolone Sod Succ 40 MG/ML VIAL IVPUSH ×2 (08:10→19:58)
[2024-09-26] MEDS: Pioglitazone HCL 45 MG TABLET PO (08:11)
[2024-09-26] MEDS: Fenofibrate 160 MG TABLET PO (08:11)
[2024-09-26] MEDS: ARIPiprazole 15 MG TABLET PO (08:11)
[2024-09-26] MEDS: Gabapentin 300 MG CAPSULE 600 MG PO ×3 (08:11→19:58)
[2024-09-26] MEDS: Multivitamin TABLET 1 TAB PO (08:11)
[2024-09-26] MEDS: lisinopriL 5 MG TABLET PO (08:11)
[2024-09-26] MEDS: glyBURIDE 5 MG TABLET 10 MG PO ×2 (08:12→19:58)
[2024-09-26] MEDS: DULoxetine HCl 60 MG CAPSULE.DR 120 MG PO (08:12)
[2024-09-26] MEDS: Albuterol/Iprat 2.5/0.5MG 3 ML AMPUL.NEB INHALE ×4 (08:13→20:22)
[2024-09-26] MEDS: Fluticasone/Vilanterol 100/25 BLST.W.DEV 1 PUFF INHALE (11:32)
[2024-09-26 11:33] LABS: Glucose, Whole Blood 260 mg/dL (60-115)
[2024-09-26] MEDS: cefTRIAXone sodium 1 GM VIAL IVPUSH (11:40)
[2024-09-26] MEDS: Azithromycin 500 MG in 0.9 % Sodium Chloride 250 ML 125 MG IV (11:41)
[2024-09-26] MEDS: 0.9 % Sodium Chloride Flush 3 ML SYRINGE IVFLUSH ×3 (11:45→19:59)
[2024-09-26] MEDS: Acetaminophen 325 MG TABLET 650 MG PO ×2 (13:59→19:58)
[2024-09-26] MEDS: Enoxaparin Sodium 40 MG/0.4 ML SYRINGE SUBCUT (15:14)
[2024-09-26 16:12] LABS: Glucose, Whole Blood 286 mg/dL (60-115)
--- NOTE | 2024-09-26 16:14 | MHC.CM.PN ---
PT REPORTS SHE LIVES WITH HER AND IS INDEPENDENT WITH CARE SHE HAS NO DME AND NO SERVICES COPY OF HCP REQUESTED PCP: ERASMO KLEIN IN [place] [facility] DELIVERED DCP: HOME NO SERVICES VIA PRIVATE TRANSPORT
--- NOTE | 2024-09-26 17:17 | P.CDIM_ITS ---
PROVIDER RESPONSE TEXT: To clarify, the appropriate diagnosis supported by the clinical indicators: Influenza A: influenza A QUERY TEXT: PHYSICIAN'S DOCUMENTATION REQUEST Date of Query: 09/26/2024 12:55 PM EDT Patient Name: Ledy Laughlin Admit Date: 09/25/2024 Dear Jc Willingham MD, A review of the medical record indicates additional documentation may be needed. Please review below and update the documentation accordingly. Clinical Indicators: Assessment and Plan: Influenza A Plan: Acute hypoxic respiratory failure in the setting of COPD exacerbation secondary to influenza in fection with underlying pneumonia with sepsis. Serology results 09/25/24 -Influenza Type - Positive A Ceftriaxone, Azithromycin, guaifenesin, Solu-Medrol, supplemental oxygen. Based on the above, could you clarify the type of Influenza you are treating within the Plan of your progress note, if known: Influenza A suspected, possible, probable, etc. Other specified Other (explain) Clinically unable to determine (explain) Thank you, Preeti Beltran, CCS, CDIS Use of terms such as suspected, likely, concern for, or probable (associated with a specific diagnosi s that is being evaluated, monitored, or treated as if it exists) are acceptable and can be coded in the inpatient se tting, when documented at the time of discharge. Please use your independent medical judgment in providing your response. THIS QUERY IS PART OF THE PERMANENT MEDICAL RECORD
[2024-09-26 19:38] LABS: Glucose, Whole Blood 269 mg/dL (60-115)
[2024-09-26] MEDS: LORazepam 1 MG TABLET 2 MG PO (19:58)
[2024-09-26] MEDS: Atorvastatin Calcium 10 MG TABLET PO (19:59)
[2024-09-26] MEDS: lamoTRIgine 100 MG TABLET 200 MG PO (19:59)
[2024-09-26] MEDS: Melatonin 3 MG TABLET 6 MG PO (19:59)
[2024-09-27] VITALS (9 sets, daily range): BP systolic 132–167; BP diastolic 63–81; PULSE 71–85; RESP 16–20; TEMP 36.1–36.7; O2SAT 92–97
[2024-09-27] MEDS: guaiFENesin DM 200/20/10 ML 10 ML SYRUP PO ×5 (01:07→21:07)
[2024-09-27 07:27] LABS: Glucose, Whole Blood 249 mg/dL (60-115)
[2024-09-27] MEDS: Fenofibrate 160 MG TABLET PO (07:51)
[2024-09-27] MEDS: Insulin Lispro 100 UNIT/ML 3 ML VIAL SUBCUT ×4 (07:51→21:08)
[2024-09-27] MEDS: Pioglitazone HCL 45 MG TABLET PO (07:51)
[2024-09-27] MEDS: lisinopriL 5 MG TABLET PO (07:51)
[2024-09-27] MEDS: Gabapentin 300 MG CAPSULE 600 MG PO ×3 (07:52→21:05)
[2024-09-27] MEDS: DULoxetine HCl 60 MG CAPSULE.DR 120 MG PO (07:52)
[2024-09-27] MEDS: ARIPiprazole 15 MG TABLET PO (07:52)
[2024-09-27] MEDS: Multivitamin TABLET 1 TAB PO (07:52)
[2024-09-27] MEDS: glyBURIDE 5 MG TABLET 10 MG PO ×2 (07:52→21:04)
[2024-09-27] MEDS: methylPREDNISolone Sod Succ 40 MG/ML VIAL IVPUSH ×2 (07:53→21:07)
[2024-09-27] MEDS: Fluticasone/Vilanterol 100/25 BLST.W.DEV 1 PUFF INHALE (08:25)
[2024-09-27] MEDS: Albuterol/Iprat 2.5/0.5MG 3 ML AMPUL.NEB INHALE ×4 (08:26→20:17)
[2024-09-27] MEDS: 0.9 % Sodium Chloride Flush 3 ML SYRINGE IVFLUSH ×3 (10:12→21:52)
[2024-09-27] MEDS: cefTRIAXone sodium 1 GM VIAL IVPUSH (10:12)
[2024-09-27] MEDS: Azithromycin 500 MG in 0.9 % Sodium Chloride 250 ML 125 MG IV (10:13)
[2024-09-27 11:40] LABS: Glucose, Whole Blood 205 mg/dL (60-115)
[2024-09-27] MEDS: Enoxaparin Sodium 40 MG/0.4 ML SYRINGE SUBCUT (15:36)
--- NOTE | 2024-09-27 16:10 | HO.PM.IMPN ---
Subjective Subjective Date of Service: 09/27/24 Interval History: Hypoxia, influenza Review of Systems sob with minimal excersion has cough no fever or chest pain Review of Systems: Yes all other systems are reviewed and are negative Physical Exam Vital Signs: Vital Signs: Last Vital Signs Temp 98.1 F 09/27/24 15:55 Pulse 85 09/27/24 15:55 Resp 18 09/27/24 15:55 BP 153/65 H 09/27/24 15:55 Pulse Ox 92 09/27/24 15:55 O2 Del Method Nasal Cannula 09/27/24 15:55 O2 Flow Rate 2 09/27/24 15:55 BMI result Body Mass Index 32.3 General: AOx3, no acute distress Resp: air entry dimished ,has b/l wheezing CVS: S1, S2, RRR GI: +BS, NT, no distention Skin: Warm, dry Neuro:non focal. Objective Data Active Medications Acetaminophen (Acetaminophen 325 Mg Tablet) 650 mg PO Q6H PRN PRN Reason: Pain, Mild 1-3,fever,headache Last Admin: 09/26/24 19:58 Dose: 650 mg Documented By: HARRIETT Albuterol/Ipratropium (Albuterol/Iprat 2.5/0.5mg 3 Ml Ampul.Neb) 3 ml INHALE RQ4H WHILE AWAKE [facility] Last Admin: 09/27/24 15:19 Dose: 3 ml Documented By: ADRIANNA Aripiprazole (Aripiprazole 15 Mg Tablet) 15 mg PO DAILY [facility] Last Admin: 09/27/24 07:52 Dose: 15 mg Documented By: NAVA Atorvastatin Calcium (Atorvastatin Calcium 10 Mg Tablet) 10 mg PO BEDTIME [facility] Last Admin: 09/26/24 19:59 Dose: 10 mg Documented By: HARRIETT Calcium Carbonate (Calcium Carbonate 750 Mg Tab.Chew) 750 mg PO Q4H PRN PRN Reason: Heartburn Ceftriaxone Sodium (Ceftriaxone Sodium 1 Gm Vial) 1 gm IVPUSH Q24H [facility] Last Admin: 09/27/24 10:12 Dose: 1 gm Documented By: NAVA Dextrose (Dextrose 50 % 25 Gm/50 Ml Syringe) 25 gm IVPUSH Q15M PRN; Protocol PRN Reason: per Hypoglycemia Standing Ord. Doxycycline Monohydrate (Doxycycline Monohydrate 100 Mg Capsule) 100 mg PO BID [facility] Duloxetine HCl (Duloxetine Hcl 60 Mg Capsule.Dr) 120 mg PO DAILY [facility] Last Admin: 09/27/24 07:52 Dose: 120 mg Documented By: NAVA Enoxaparin Sodium (Enoxaparin Sodium 40 Mg/0.4 Ml Syringe) 40 mg SUBCUT Q24H [facility] Last Admin: 09/27/24 15:36 Dose: 40 mg Documented By: NAVA Fenofibrate (Fenofibrate 160 Mg Tablet) 160 mg PO DAILY [facility] Last Admin: 09/27/24 07:51 Dose: 160 mg Documented By: NAVA Fluticasone/Vilanterol (Fluticasone/Vilanterol 100/25 Blst.W.Dev) 1 puff INHALE RDAILY [facility] Last Admin: 09/27/24 08:25 Dose: 1 puff Documented By: ZAINAB Gabapentin (Gabapentin 300 Mg Capsule) 600 mg PO TID [facility] Last Admin: 09/27/24 15:36 Dose: 600 mg Documented By: NAVA Glucose (Glucose Gel 15 Gm Gel..Gram.) 15 gm PO Q15M PRN; Protocol PRN Reason: per Hypoglycemia Standing Ord. Glyburide (Glyburide 5 Mg Tablet) 10 mg PO BID [facility] Last Admin: 09/27/24 07:52 Dose: 10 mg Documented By: NAVA Guaifenesin/Dextromethorphan (Guaifenesin Dm 200/20/10 Ml 10 Ml Syrup) 10 ml PO Q4H PRN PRN Reason: Cough Last Admin: 09/27/24 16:08 Dose: 10 ml Documented By: NAVA Azithromycin 500 mg/ Sodium (Chloride) 250 mls @ 125 mls/hr IV Q24H [facility] Last Infusion: 09/27/24 13:07 Dose: Infused Documented By: NAVA Insulin Human Lispro (Insulin Lispro 100 Unit/Ml 3 Ml Vial) 0 unit SUBCUT QIDACHS [facility]; Protocol Last Admin: 09/27/24 11:58 Dose: 4 unit Documented By: NAVA Lamotrigine (Lamotrigine 100 Mg Tablet) 200 mg PO BEDTIME [facility] Last Admin: 09/26/24 19:59 Dose: 200 mg Documented By: HARRIETT Lisinopril (Lisinopril 5 Mg Tablet) 5 mg PO DAILY [facility]; Protocol Last Admin: 09/27/24 07:51 Dose: 5 mg Documented By: NAVA Lorazepam (Lorazepam 1 Mg Tablet) 1 mg PO BID PRN PRN Reason: Anxiety Lorazepam (Lorazepam 1 Mg Tablet) 2 mg PO BEDTIME [facility] Last Admin: 09/26/24 19:58 Dose: 2 mg Documented By: HARRIETT Magnesium Hydroxide (Milk Of Magnesia 30 Ml Oral.Susp) 30 ml PO DAILY PRN PRN Reason: Constipation Melatonin (Melatonin 3 Mg Tablet) 6 mg PO BEDTIME PRN PRN Reason: Insomnia Last Admin: 09/26/24 19:59 Dose: 6 mg Documented By: HARRIETT Methylprednisolone Sodium Succinate (Methylprednisolone Sod Succ 40 Mg/Ml Vial) 40 mg IVPUSH Q12H [facility] Last Admin: 09/27/24 07:53 Dose: 40 mg Documented By: NAVA Multivitamins/Vitamin C (Multivitamin Tablet) 1 tab PO DAILY [facility] Last Admin: 09/27/24 07:52 Dose: 1 tab Documented By: NAVA Pioglitazone HCl (Pioglitazone Hcl 45 Mg Tablet) 45 mg PO DAILY [facility] Last Admin: 09/27/24 07:51 Dose: 45 mg Documented By: NAVA Sodium Chloride (0.9 % Sodium Chloride Flush 3 Ml Syringe) 3 ml IVFLUSH QSHIFT [facility] Last Admin: 09/27/24 15:37 Dose: 3 ml Documented By: NAVA Labs 09/25/24 09:52 09/25/24 09:52 Labs: Laboratory Results - last 24 hr 09/26/24 09/26/24 09/27/24 16:09 19:30 07:15 POC Glucose 286 H 269 H 249 H 09/27/24 11:36 POC Glucose 205 H Microbiology Microbiology Results: Microbiology 09/25/24 09:58 Blood Culture - Preliminary Blood - Venous No growth after 48 hours. 09/25/24 09:57 Blood Culture - Preliminary Blood - Venous No growth after 48 hours. Assessment and Plan (1) Influenza A: Status: Acute (2) Acute exacerbation of chronic obstructive airways disease: Status: Acute (3) Community acquired pneumonia: Status: Acute Plan 59-year-old female with a PMH significant for?COPD, jpx-rrlkded-dnszikvar type 2 diabetes, HTN, HLD, and active smoker 1 pack per day who presents to the ED from urgent care for evaluation of progressive SOB, TYSON, and difficulty breathing. Pt is admitted to the hospital acute hypoxic respiratory failure in the setting of COPD exacerbation secondary to influenza infection with underlying pneumonia with sepsis. Acute hypoxic respiratory failure in setting of COPD exacerbation secondary to influenza infection with underlying pneumonia with sepsis Pt with SOB, TYSON, fatigue, myalgias, and cough x5 days sepsis improving Flu+, CXR with possible early pneumonia, desatting to 87% on RA continue with ceftriaxone azithromycin, started 09/25/2024,DuoNebs, Solu-Medrol, guaifenesin Titrate supplemental O2 >92, wean as tolerated Monitor respiratory status Yzv-kwvtifz-oeravvscv type 2 diabetes Pt has been hyperglycemic while in the hospital Sliding-scale insulin, diabetic diet HTN Continue lisinopril HLD Continue statin Mood disorder Continue lamotrigine, lorazepam, and omeprazole ongoing need: acute hypoxemic respitroy failure -need oxygen ,iv antibiotics and moniter respiratory status closely Quality Stroke Does the patient have a stroke diagnosis?: No VTE Prior VTE?: No VTE Risk Level:: Medical - moderate - high VTE Device Contraindication: Treatment Not Indicated VTE Drug Contraindication: N/A - Med Ordered
[2024-09-27 16:29] LABS: Glucose, Whole Blood 273 mg/dL (60-115)
[2024-09-27 20:44] LABS: Glucose, Whole Blood 208 mg/dL (60-115)
[2024-09-27] MEDS: LORazepam 1 MG TABLET 2 MG PO (21:03)
[2024-09-27] MEDS: lamoTRIgine 100 MG TABLET 200 MG PO (21:03)
[2024-09-27] MEDS: Atorvastatin Calcium 10 MG TABLET PO (21:03)
[2024-09-27] MEDS: Melatonin 3 MG TABLET 6 MG PO (21:06)
[2024-09-27] MEDS: Acetaminophen 325 MG TABLET 650 MG PO (21:06)
[2024-09-28 03:09] VITALS: BP 135/60; PULSE 71; RESP 18; TEMP 36.2; O2SAT 94
[2024-09-28 07:30] VITALS: BP 162/74; PULSE 74; RESP 18; TEMP 36.4; O2SAT 93
[2024-09-28 07:45] LABS: Glucose, Whole Blood 253 mg/dL (60-115)
[2024-09-28] MEDS: Insulin Lispro 100 UNIT/ML 3 ML VIAL SUBCUT ×2 (07:50→11:35)
[2024-09-28] MEDS: ARIPiprazole 15 MG TABLET PO (07:51)
[2024-09-28] MEDS: Fenofibrate 160 MG TABLET PO (07:51)
[2024-09-28] MEDS: Multivitamin TABLET 1 TAB PO (07:51)
[2024-09-28] MEDS: lisinopriL 5 MG TABLET PO (07:51)
[2024-09-28] MEDS: 0.9 % Sodium Chloride Flush 3 ML SYRINGE IVFLUSH (07:52)
[2024-09-28] MEDS: Gabapentin 300 MG CAPSULE 600 MG PO (07:52)
[2024-09-28] MEDS: methylPREDNISolone Sod Succ 40 MG/ML VIAL IVPUSH (07:52)
[2024-09-28] MEDS: DULoxetine HCl 60 MG CAPSULE.DR 120 MG PO (07:52)
[2024-09-28] MEDS: Pioglitazone HCL 45 MG TABLET PO (07:52)
[2024-09-28] MEDS: glyBURIDE 5 MG TABLET 10 MG PO (07:52)
--- NOTE | 2024-09-28 07:56 | P.PNIM_ITS ---
Subjective Subjective Date of Service: 09/28/24 Interval History: copd,influenza Review of Systems Review of Systems: Yes all other systems are reviewed and are negative Physical Exam 2 Vital Signs: Vital Signs: Last Vital Signs Temp 97.5 F 09/28/24 07:30 Pulse 74 09/28/24 07:30 Resp 18 09/28/24 07:30 BP 162/74 H 09/28/24 07:30 Pulse Ox 93 09/28/24 07:30 O2 Del Method Nasal Cannula 09/28/24 07:30 O2 Flow Rate 2 09/28/24 07:30 BMI result Body Mass Index 32.3 Objective Data Active Medications Acetaminophen (Acetaminophen 325 Mg Tablet) 650 mg PO Q6H PRN PRN Reason: Pain, Mild 1-3,fever,headache Last Admin: 09/27/24 21:06 Dose: 650 mg Documented By: HARRIETT Comments: given per pt request Albuterol/Ipratropium (Albuterol/Iprat 2.5/0.5mg 3 Ml Ampul.Neb) 3 ml INHALE RQ4H WHILE AWAKE [facility] Last Admin: 09/27/24 20:17 Dose: 3 ml Documented By: JARVIS Aripiprazole (Aripiprazole 15 Mg Tablet) 15 mg PO DAILY [facility] Last Admin: 09/28/24 07:51 Dose: 15 mg Documented By: NAVA Atorvastatin Calcium (Atorvastatin Calcium 10 Mg Tablet) 10 mg PO BEDTIME [facility] Last Admin: 09/27/24 21:03 Dose: 10 mg Documented By: HARRIETT Calcium Carbonate (Calcium Carbonate 750 Mg Tab.Chew) 750 mg PO Q4H PRN PRN Reason: Heartburn Ceftriaxone Sodium (Ceftriaxone Sodium 1 Gm Vial) 1 gm IVPUSH Q24H [facility] Last Admin: 09/27/24 10:12 Dose: 1 gm Documented By: NAVA Dextrose (Dextrose 50 % 25 Gm/50 Ml Syringe) 25 gm IVPUSH Q15M PRN; Protocol PRN Reason: per Hypoglycemia Standing Ord. Doxycycline Monohydrate (Doxycycline Monohydrate 100 Mg Capsule) 100 mg PO BID [facility] Duloxetine HCl (Duloxetine Hcl 60 Mg Capsule.Dr) 120 mg PO DAILY [facility] Last Admin: 09/28/24 07:52 Dose: 120 mg Documented By: NAVA Enoxaparin Sodium (Enoxaparin Sodium 40 Mg/0.4 Ml Syringe) 40 mg SUBCUT Q24H [facility] Last Admin: 09/27/24 15:36 Dose: 40 mg Documented By: NAVA Fenofibrate (Fenofibrate 160 Mg Tablet) 160 mg PO DAILY [facility] Last Admin: 09/28/24 07:51 Dose: 160 mg Documented By: NAVA Fluticasone/Vilanterol (Fluticasone/Vilanterol 100/25 Blst.W.Dev) 1 puff INHALE RDAILY [facility] Last Admin: 09/27/24 08:25 Dose: 1 puff Documented By: ZAINAB Gabapentin (Gabapentin 300 Mg Capsule) 600 mg PO TID [facility] Last Admin: 09/28/24 07:52 Dose: 600 mg Documented By: NAVA Glucose (Glucose Gel 15 Gm Gel..Gram.) 15 gm PO Q15M PRN; Protocol PRN Reason: per Hypoglycemia Standing Ord. Glyburide (Glyburide 5 Mg Tablet) 10 mg PO BID [facility] Last Admin: 09/28/24 07:52 Dose: 10 mg Documented By: NAVA Guaifenesin/Dextromethorphan (Guaifenesin Dm 200/20/10 Ml 10 Ml Syrup) 10 ml PO Q4H PRN PRN Reason: Cough Last Admin: 09/27/24 21:07 Dose: 10 ml Documented By: HARRIETT Azithromycin 500 mg/ Sodium (Chloride) 250 mls @ 125 mls/hr IV Q24H [facility] Last Infusion: 09/27/24 13:07 Dose: Infused Documented By: NAVA Insulin Human Lispro (Insulin Lispro 100 Unit/Ml 3 Ml Vial) 0 unit SUBCUT QIDACHS [facility]; Protocol Last Admin: 09/28/24 07:50 Dose: 6 unit Documented By: NAVA Lamotrigine (Lamotrigine 100 Mg Tablet) 200 mg PO BEDTIME [facility] Last Admin: 09/27/24 21:03 Dose: 200 mg Documented By: HARRIETT Lisinopril (Lisinopril 5 Mg Tablet) 5 mg PO DAILY [facility]; Protocol Last Admin: 09/28/24 07:51 Dose: 5 mg Documented By: NAVA Lorazepam (Lorazepam 1 Mg Tablet) 1 mg PO BID PRN PRN Reason: Anxiety Lorazepam (Lorazepam 1 Mg Tablet) 2 mg PO BEDTIME [facility] Last Admin: 09/27/24 21:03 Dose: 2 mg Documented By: HARRIETT Magnesium Hydroxide (Milk Of Magnesia 30 Ml Oral.Susp) 30 ml PO DAILY PRN PRN Reason: Constipation Melatonin (Melatonin 3 Mg Tablet) 6 mg PO BEDTIME PRN PRN Reason: Insomnia Last Admin: 09/27/24 21:06 Dose: 6 mg Documented By: HARRIETT Methylprednisolone Sodium Succinate (Methylprednisolone Sod Succ 40 Mg/Ml Vial) 40 mg IVPUSH Q12H [facility] Last Admin: 09/28/24 07:52 Dose: 40 mg Documented By: NAVA Multivitamins/Vitamin C (Multivitamin Tablet) 1 tab PO DAILY [facility] Last Admin: 09/28/24 07:51 Dose: 1 tab Documented By: NAVA Pioglitazone HCl (Pioglitazone Hcl 45 Mg Tablet) 45 mg PO DAILY [facility] Last Admin: 09/28/24 07:52 Dose: 45 mg Documented By: NAVA Sodium Chloride (0.9 % Sodium Chloride Flush 3 Ml Syringe) 3 ml IVFLUSH QSHIFT [facility] Last Admin: 09/28/24 07:52 Dose: 3 ml Documented By: NAVA Labs 09/25/24 09:52 09/25/24 09:52 Labs: Laboratory Results - last 24 hr 09/27/24 09/27/24 09/27/24 11:36 16:25 20:34 POC Glucose 205 H 273 H 208 H 09/28/24 07:33 POC Glucose 253 H Microbiology Microbiology Results: Microbiology 09/25/24 09:58 Blood Culture - Preliminary Blood - Venous No growth after 48 hours. 09/25/24 09:57 Blood Culture - Preliminary Blood - Venous No growth after 48 hours. Assessment and Plan (1) Influenza A: Status: Acute (2) Acute exacerbation of chronic obstructive airways disease: Status: Acute (3) Community acquired pneumonia: Status: Acute Quality Stroke Does the patient have a stroke diagnosis?: No VTE Prior VTE?: No VTE Risk Level:: Medical - moderate - high VTE Device Contraindication: Treatment Not Indicated VTE Drug Contraindication: N/A - Med Ordered
[2024-09-28] MEDS: guaiFENesin DM 200/20/10 ML 10 ML SYRUP PO (08:00)
[2024-09-28] MEDS: Fluticasone/Vilanterol 100/25 BLST.W.DEV 1 PUFF INHALE (08:11)
[2024-09-28 08:13] VITALS: PULSE 78; RESP 18; O2SAT 89
[2024-09-28] MEDS: Albuterol/Iprat 2.5/0.5MG 3 ML AMPUL.NEB INHALE ×2 (08:13→11:55)
[2024-09-28] MEDS: Azithromycin 500 MG in 0.9 % Sodium Chloride 250 ML 125 MG IV (09:59)
[2024-09-28] MEDS: cefTRIAXone sodium 1 GM VIAL IVPUSH (09:59)
--- NOTE | 2024-09-28 10:07 | PC.NURSE ---
Pt O2 sat on room air 88%. Ambulated in [place] on room air O2 sat dropped to 85%. Pt stated she felt ok throughout walk except at one point felt a little dizzy. Upon return, pt O2 sat 88% on room air. Dr Willingham notified
[2024-09-28 11:03] LABS: Glucose, Whole Blood 292 mg/dL (60-115)
[2024-09-28 11:56] VITALS: PULSE 88; RESP 18; O2SAT 89
[2024-09-28 11:57] VITALS: PULSE 80; PULSE 88; PULSE 92; PULSE 97; O2SAT 84; O2SAT 86; O2SAT 88; O2SAT 89
--- NOTE | 2024-09-28 12:14 | P.DS_ITS ---
DS: Providers Provider Date of Service: 09/28/24 Date of admission: 09/25/24 10:54 Date of discharge: 09/28/24 Primary care physician: Unknown Physician Attending physician on discharge: Jc Willingham Discharging clinician: Jc Willingham DS: Diagnosis Discharge Diagnosis (1) Influenza A: Status: Acute (2) Acute exacerbation of chronic obstructive airways disease: Status: Acute (3) Community acquired pneumonia: Status: Acute DS: Summary Hospital Course Hospital Course: HPI:59-year-old female with a PMH significant for?COPD, wob-omienig-bhglvexjr type 2 diabetes, HTN, HLD, and active smoker 1 pack per day who presents to the ED from urgent care for evaluation of progressive SOB, TYSON, and difficulty b reathing. Pt reports symptoms began 5 days ago on Sunday when she began experiencing allergy like symptoms including runny eyes, rhinorrhea, and sneezing. On Sunday pt began developing mostly nonproductive cough, fatigue, myalgias, and progressive SOB. Had TYSON even with simply walking to the bathroom. Denies sick contacts. No fever or chills. Two days ago pt presented to urgent care and was prescribed doxycycline and prednisone. pt compliant with medications though they offered no relief. Pt re-presented to the urgent care earlier today as SOB increased and she simply ?could not breathe?. At urgent care pt was found to be hypoxic in the mid 80s and with diffuse wheezing, so was brought to the ED by ambulance. Denies chest pain/pressure, palpitations. In the ED pt was tachycardic up to 93, tachypneic up to 29, hypertensive at 159/79, and desatting to 87% on RA. Labs were significant for testing positive for flu, glucose 311, and AST 50. No leukocytosis. Stable H&H. No significant electrolyte abnormalities. Renal function baseline. Lactic acid WNL at 1.5. Troponin WNL. BNP WNL. CXR showed streaky opacities in RUL concerning for early pneumonia. EKG demonstrated normal sinus rhythm without evidence of significant ST elevations or depressions. Pt was treated in the ED with Solu-Medrol, DuoNebs, IVF, lispro 8 units, ceftriaxone, and azithromycin. Pt is admitted to the hospital acute hypoxic respiratory failure in the setting of COPD exacerbation secondary to influenza infection with underlying pneumonia with sepsis. Hospital course: 59-year-old female with a PMH significant for?COPD, lmp-prtndjz-okfruyuio type 2 diabetes, HTN, HLD, and active smoker 1 pack per day who presents to the ED from urgent care for evaluation of progressive SOB, TYSON, and difficulty breathing. Pt is admitted to the hospital acute hypoxic respiratory failure in the setting of COPD exacerbation secondary to influenza infection with underlying pneumonia wi th sepsis. Acute hypoxic respiratory failure in setting of COPD exacerbation secondary to influenza infection with underlying pneumonia with sepsis, patient had flu-like symptoms from at at least 5 days. Patient was admitted for above-started on IV antibiotics, blood cultures sent, oxygen, nebs, steroids, chest x-ray shows possible early pneumonia right side. Patient has flu-like symptoms for more than 5 days and improved significantly - so will defer Tamiflu. With the above supportive care patient seems to be improved significantly, now does not require oxygen at rest but exertional need 2 L oxygen, walking fine with oxygen no shortness of breath. Blood culture negative at 48 hour. Feels much better and eager to go home. Patient will be going home with the p.o. antibiotics Ceftin and azithromycin, prednisone, cough medication. Vim-fcyhimi-jamvpahiv type 2 diabetes: Mild hyperglycemia-possibly related to steroids. Continue home diabetes regimen, patient is switched to prednisone so hyperglycemia expected to get better. plan: Complete Ceftin 500 mg p.o. b.i.d. for 5 more days, azithromycin 500 mg daily for 3 more days. Repeat chest imaging in 3-4 weeks to see resolution pneumonia. prednisone 40 mg po daily x4 days. Monitor fingersticks closely Patient will be going home with home oxygen 2 L with exertion. Cough medication, loratadine. Patient seems much better and eager to go home. Patient was offered for home services but patient declined. Above management discussed with the patient in detail length she understand and in agreement with the above plan, time spent 40 minute, all question answered. Staff present during conversation. Time Attestation Total time managing care of this patient today: 40 mintues. Discharge Coordination Time (in mins): 40 min Quality: Safe Use of Opioids Does Pt have an Active Cancer Diagnosis on the Problem List?: No Quality: Stroke Does the patient have a stroke diagnosis?: No Physical Exam Vital Signs: Vital Signs: Last Vital Signs Temp 97.5 F 09/28/24 07:30 Pulse 88 09/28/24 11:56 Resp 18 09/28/24 11:56 BP 162/74 H 09/28/24 07:30 Pulse Ox 93 09/28/24 07:30 O2 Del Method Nasal Cannula 09/28/24 07:30 O2 Flow Rate 2 09/28/24 07:30 BMI result Body Mass Index 32.3 Appearance: Alert.? Oriented X3.? not in distress.? cvs: rrr, [id number] res: clear to auscultation ,no rhonchii or wheezing abd: no rebound or guarding ,nt, bs present. ext pulses present , no cyanosis . neuro: axo3 , nonfocal. DS: Data Data Completed and Pending Labs on day of discharge: Laboratory Results - last 24 hr 09/27/24 09/27/24 09/28/24 16:25 20:34 07:33 POC Glucose 273 H 208 H 253 H 09/28/24 10:56 POC Glucose 292 H Preliminary micro results at discharge 09/25/24 09:58 Blood Culture - Preliminary Blood - Venous No growth after 48 hours. 09/25/24 09:57 Blood Culture - Preliminary Blood - Venous No growth after 48 hours. Imaging Chest x-ray: Radiologist's impression: ITS Impressions Chest X-Ray 09/25/24 09:38 IMPRESSION: Streaky opacities in the right upper lung zone may represent early pneumonia. Follow-up is recommended to document resolution. Electronically signed by: Melvin Garcia MD 09/25/2024 10:02 AM EDT Discharge Plan Discharge Anticipated Discharge Date/Time: 09/28/24 12:01 Patient Disposition: Home, Self-Care Discharge Diagnosis: acute hypoxemic respiratory failure secondary to pneumonia . Influenza a. Referrals: Physician,Unknown J [Primary Care Provider] - 1 Week Discharge Medications: New cefuroxime axetil 500 mg Tablet 500 mg PO Q12H Qty: 10 0RF azithromycin 500 mg Tablet 500 mg PO Q24H Qty: 3 0RF prednisone 20 mg tablet 40 mg PO DAILY Qty: 8 0RF dextromethorphan-guaifenesin 10-100 mg/5 mL Syrup 10 ml PO Q4H PRN (Reason: Cough) Qty: 200 0RF Continued glyburide 5 mg tablet 10 mg PO BID pioglitazone 45 mg tablet 45 mg PO DAILY simvastatin 20 mg tablet 20 mg PO BEDTIME gabapentin 300 mg capsule 600 mg PO TID lisinopril 5 mg tablet 5 mg PO DAILY lorazepam 1 mg tablet 1 mg PO BID PRN (Reason: Anxiety) fluticasone propion-salmeterol [Wixela Inhub] 100-50 mcg/dose blister with device 1 ea inhalation BID albuterol sulfate 90 mcg/actuation HFA aerosol inhaler 2 puff inhalation Q4H PRN (Reason: Shortness Of Breath Or Wheezing) lamotrigine 100 mg tablet 200 mg PO BEDTIME aripiprazole 15 mg tablet 15 mg PO DAILY duloxetine 60 mg capsule,delayed release(DR/EC) 120 mg PO DAILY fenofibrate nanocrystallized 145 mg tablet 145 mg PO DAILY multivitamin Tablet 1 tab PO DAILY lorazepam 1 mg tablet 2 mg PO BEDTIME Immune Support 1,000-50 mg Tablet, Effervescent 1 ea PO DAILY Held prednisone 20 mg tablet 20 mg PO BID Hold Instructions: Resume on 10/02/24. Discontinued doxycycline hyclate 100 mg tablet 100 mg PO BID Discharge Orders: Discharge Order (Routine); Ordered 09/28/24 Ordered By: Jc Willingham Diet: Advance to usual diet Activity on Discharge: As tolerated Stand Alone Forms: Patient Portal Discharge page Print Language: Serbian Care Plan Goals: as below. Health Concerns: Complete Ceftin 500 mg p.o. b.i.d. for 5 more days, azithromycin 500 mg daily for 3 more days. Repeat chest imaging in 3-4 weeks to see resolution pneumonia. Patient will be going home with home oxygen 2 L with exertion. Cough medication, loratadine. Patient seems much better and eager to go home. Patient was offered for home services but patient declined. Plan of Treatment: As above. Assessment: As above. Patient Instructions: Pneumonia (DC)
--- NOTE | 2024-09-28 13:21 | MHC.CM.PN ---
PT CLEARED TO DC HOME TODAY WITH NEW HOME O2 SHE DECLINES [facility] PT WILL ARRANGE TRANSPORT
== END 2024-09-28 13:50 | disposition home or self-care (01) | DRG 871 ==
LOC: HO.ED 10:18 → HO.EDOVER 10:55 → HO.S3 11:52
PROVIDERS: Physician Assistant; Admitting Provider Student in an Organized Health Care Education/Training Program; Emergency Provider Emergency Medicine; PCP Family Medicine; Visit Provider Internal Medicine
DX: A41.9 Sepsis, unspecified organism (principal); J10.00 Influenza due to other identified influenza virus with unspecified type of pneumonia; J96.01 Acute respiratory failure with hypoxia; J44.0 Chronic obstructive pulmonary disease with (acute) lower respiratory infection; J44.1 Chronic obstructive pulmonary disease with (acute) exacerbation; E78.5 Hyperlipidemia, unspecified; F39 Unspecified mood [affective] disorder; E11.65 Type 2 diabetes mellitus with hyperglycemia; F17.210 Nicotine dependence, cigarettes, uncomplicated; Z71.6 Tobacco abuse counseling; Z20.822 Contact with and (suspected) exposure to COVID-19; Z79.52 Long term (current) use of systemic steroids; Z79.84 Long term (current) use of oral hypoglycemic drugs; Z79.899 Other long term (current) drug therapy
CPT/HCPCS: 0241U; 36415; 71045; 80048; 80076; 82803; 82947; 83605; 83735; 83880; 84484; 85025; 87040; 93005; 94640; 99285; J0456; J0696; J1650; J2919

== ENCOUNTER → 2024-09-25 09:16 | Outpatient (BNV) | payer MEDICARE, SELFPAY | PROVIDERS: Admitting Provider Student in an Organized Health Care Education/Training Program; Emergency Provider Emergency Medicine; Visit Provider Radiology Diagnostic Radiology | DX: R06.00 Dyspnea, unspecified (principal) | CPT/HCPCS: 71045 ==

== ENCOUNTER → 2024-09-25 09:16 | Outpatient (BNV) | payer MEDICARE, SELFPAY | PROVIDERS: Admitting Provider Student in an Organized Health Care Education/Training Program; Emergency Provider Emergency Medicine; Visit Provider Internal Medicine Cardiovascular Disease | DX: R06.02 Shortness of breath (principal) | CPT/HCPCS: 93010 ==

== ENCOUNTER → 2024-09-25 10:54 | Outpatient (BNV) | payer MEDICARE, SELFPAY | PROVIDERS: Admitting Provider Student in an Organized Health Care Education/Training Program; Emergency Provider Emergency Medicine; Visit Provider Student in an Organized Health Care Education/Training Program | DX: J44.1 Chronic obstructive pulmonary disease with (acute) exacerbation (principal); J10.1 Influenza due to other identified influenza virus with other respiratory manifestations; J18.9 Pneumonia, unspecified organism | CPT/HCPCS: 99223; 99232; 99239 ==

== ENCOUNTER 2024-10-22 09:06 | Outpatient (REF) | payer MEDICARE, SELFPAY ==
--- NOTE | ~2024-10-22 | XR_ITS ---
EXAMINATION: XR CHEST 2 VIEWS HISTORY: PNEUMONIA COMPARISON: Comparison is made with the prior examination dated 09/25/2024. FINDINGS: PA and lateral views of the chest are submitted. The lungs are expanded and clear. The previously seen right upper lobe opacities have resolved.. There is no pleural effusion, pneumothorax, or pulmonary vascular congestion. The heart is normal in size. There is mild degenerative disc disease of the spine. XR/XR chest 2V IMPRESSION: No acute cardiopulmonary abnormality. The previously seen right upper lobe opacities have resolved. Electronically signed by: Melvin Garcia MD 10/22/2024 11:23 AM EDT
--- OUTSIDE RECORDS SUMMARY | 2024-10-22 09:40 | XMS_ITS ---
Author Organization [facility] Address [address] [place] [address] Care Team Providers Care Housekeeping Cleaner Name Role Phone Taniya Ibarra MD Primary Care Provider Unavail able Trent Galan Unavailable [phone] rivera Encounters Encounter Location Date Provider Diagnosis [address] [id number] 10/10/2023 Trent Galan Plan Of Treatment Next Appt Details Provider Name:Trent Galan , 12/17/2024 08:30:00 AM, [address] [place] [address], [place] [address], [place], [phone], Progress Notes * Ledy LAUGHLIN EDOB:1965 ( 59 yo F)Acc No.[id number]:10/10/2023 Progress Note Patient:?Ledy LAUGHLIN Provider:?Trent Galan DPM :1965???Age:58 Y???Sex:Female D ate:10/10/2023 Address:[address], [id number] Pcp:Taniya Ibarra MD Subjective: * Chief Complaints: [...] Galan DPM Date:?2023 Generated for Navid dyer/Ester/Noel on:?10/22/2024 09:40 AM EDT
== END 2024-10-22 09:07 | disposition home or self-care (01) ==
LOC: HO.XRAY 09:06
PROVIDERS: PCP Family Medicine; Visit Provider Family Medicine
DX: J18.9 Pneumonia, unspecified organism (principal)
CPT/HCPCS: 71046

== ENCOUNTER → 2024-10-22 09:25 | Outpatient (BNV) | payer MEDICARE, SELFPAY | PROVIDERS: PCP Family Medicine; Visit Provider Radiology Diagnostic Radiology | DX: J18.9 Pneumonia, unspecified organism (principal) | CPT/HCPCS: 71046 ==

== ENCOUNTER 2025-02-10 09:20 | Outpatient (AMB) | payer MEDICARE, SELFPAY ==
--- OUTSIDE RECORDS SUMMARY | 2023-10-10 04:30 | XMS_ITS ---
Author Organization [facility] Address [address] [place] [address] Care Team Providers Care Tester Equipment Name Role Phone Fred CORONEL, Taniya Primary Care Provider Unavail able Trent Galan Unavailable [phone] rivera Encounters Encounter Location Date Provider Diagnosis [address] [phone] 10/10/2023 Trent Galan Plan Of Treatment Next Appt Details Provider Name:Trent Galan , 02/15/2026 09:00:00 AM, [address] [place] [address], [phone], Progress Notes * Ledy LAUGHLIN EDOB:1965 ( 59 yo F)Acc No.[id number]:10/10/2023 Progress Note Patient: Keyana DAVID Ledy Prado Provider: Johan Galan DPM :1965 A ge:58 Y S ex:Female Date:10/10/2023 Address:[address], [place], [place]-[address] Pcp:Taniya Ibarra MD Subjective: * Chief [...] 0 10/10/2023 Generated for Navid Camejo on: 02/10/2025 10:09 AM EDT
--- NOTE | 2025-02-10 10:07 | A.OFFVIS_ITS ---
Intake Visit Reasons: ENP-Tremors Allergies No Known Allergies Allergy (Verified 09/25/24 09:20) Medication List - Last Reconciled 02/10/25 by Hasmukh Murphy MD albuterol sulfate 90 mcg/actuation 2 puffs inhalation Q4H PRN aripiprazole 15 mg PO DAILY cefuroxime axetil 500 mg PO Q12H duloxetine 120 mg PO DAILY fenofibrate nanocrystallized 145 mg PO DAILY fluticasone propion-salmeterol 100-50 mcg/dose (Wixela Inhub) 1 ea inhalation BID gabapentin 600 mg PO TID lamotrigine 200 mg PO BEDTIME lisinopril 5 mg PO DAILY lorazepam 1 mg PO BID PRN multivitamin 1 tab PO DAILY [id number] 1,000-50 mg (Immune Support) 1 ea PO DAILY pioglitazone 45 mg PO DAILY simvastatin 20 mg PO BEDTIME HPI Comments Details: This is a 59-year-old woman who is being treated forHBP, PTSD, major depression and anxiety and is on multiple mood stabilizers including lamotrigine 200 mg bedtime and duloxetine 120 mg a day and aripiprazole 15 mg which has been started in the last 6 months and increase gradually to achieve therapeutic benefit. She comes in for evaluation of tremors in her hands, right worse than left that started about 5 months ago and interfere with her handwriting and sometimes holding a cup of coffee. The tremors intermittent. It is not made worse by by stress or caffeine. Family history is only positive for tremor in her maternal grandmother. She has no thyroid disorder. [facility] Medical History (Updated 02/10/25 @ 10:13 by Hasmukh Murphy MD) Diabetes mellitus Depression Asthma Obesity Vitamin D deficiency COPD (chronic obstructive pulmonary disease) Benign essential tremor Social History Household Members: Spouse Housing: House Do you presently have visiting nurse or other home services: No Patient Tobacco Use Status: Current everyday Tobacco user Cigarette Packs Per Day: 1 Cigarettes Per Day: 20.0 service: No Review of Systems ENT Reports neck pain Musc Reports back pain, Reports neck pain and Reports numbness Neuro Reports numbness and Reports tremor(s) Psych Reports anxiety, Reports depression and Reports mood swings Physical Exam Neuro Other: ?Mini Mental Status Exam Level of Consciousness:?Alert.? Orientation:?Knows correct year, month, date, day and season.?Knows correct city, county and state. Knows correct location and floor.? Registration:?Able to register 3 objects.? Attention:?Serial 7's performed accurately.? Recall:?Able to recall 3 out of 3 objects.? Language:?Normal spontaneous speech, fluency, repetition, naming, comprehension, reading, and writing.? Total Score:?30/30.? Neurological Abnormal neurological findings:??Low to medium amplitude medium frequency 8 hertz tremor of the extended upper extremities bilaterally. It is seen both in pronation and also on lequod-yv-pxow test. Handwriting shows some irregular tremor. Mental Status:?Alert and oriented X 3.?Normal attention, orientation, memory, and affect.? Cranial Nerves:?Pupils are equal, round and reactive to light. Fundoscopy shows normal disc bilaterally. External occular muscles are intact. Visual rider are full, no ptosis. Face is symmetrical, no facial weakness or droop. Facial sensations are normal. Tongue protrudes in midline. Palate elevates symmetrically. Shoulder shrugging is normal.? Motor Examination:?Normal muscle tone, bulk and strength.?No atrophy or fasciculations.?No drift of the extended upper extremities.?Deep tendon reflexes are 2+.?Plantars are flexor.? Motor Strength:? Proximal Muscles (out of 5):?5 Distal Muscles (out of 5):?5 Neck Flexors (out of 5):?5 Neck Extensors (out of 5):?5 Deltoid (out of 5):?5 Biceps (out of 5):?5 Triceps (out of 5):?5 Serratus Anterior (out of 5):?5 Wrist Extensors (out of 5):?5 APB (out of 5):?5 Finger Spread (out of 5):?5 Ileopsoas (out of 5):?5 Quadriceps (out of 5):?5 Hamstrings (out of 5):?5 Tibialis Anterior (out of 5):?5 Peronei (out of 5):?5 EDB (out of 5):?5 Gastrocnemius (out of 5):?5 Straight Leg Raising:?90 degrees.? Sensory Exam:?Normal light touch, temperature, pinprick, vibration and joint-position sensations.?Rhomberg sign is absent.? Coordination:?No ataxia,?no titubation,?sdwxdf-gd-ztey, bsdl-nmpi-dxlu test, and rapid alternating movements were normal.? Gait Exam:?Within normal limits.? Cerebellar Signs:?Txjdlr-bc-scjt and rtjq-nv-otqc is normal.?No dysdiadochokinesia.? Extrapyramidal System:?Tremor as above. No or?rigidity, normal facial ex pressions.?No bradykinesia. No bradyphrenia. Normal arm swing and posture. No propulsion or retropulsion.? Speech:?Normal,?no dysphasia or dysarthria.? General Examination GENERAL APPEARANCE:??normal,?in no acute distress?,?normal,?in no acute distress.? HEAD:??normocephalic,?atraumatic.? EYES:??sclera non-icteric,?conjunctiva clear.? EARS:??auditory canal clear,?tympanic membrane intact, clear.? NOSE:??no lesions.? ORAL CAVITY:??gums normal,?mucosa moist,?no lesions.? THROAT:??clear.? NECK/THYROID:??no cervical lymphadenopathy,?thyroid normal,?neck supple, full range of motion,?no carotid bruit.? SKIN:??no rashes,?no significant birthmarks.? HEART:??S1, S2 normal,?no murmurs?,?S1, S2 normal,?no murmurs.? LUNGS:??clear anteriorly and posteriorly?,?clear anteriorly and posteriorly.? CHEST:??no gross rib deformity,?clear to auscultation.? BACK:??normal exam of spine.? MUSCULOSKELETAL:??normal.? EXTREMITIES:??no edema?,?no edema.? PERIPHERAL PULSES:??normal.? PSYCH:??alert, oriented,?cognitive function intact,?cooperative with exam?,?alert, oriented,?cognitive function intact,?cooperative with exam.? Assessment & Plan Assessment & Plan (1) Medication-induced postural tremor: Comment: Most likely related to the use of aripiprazole whose dosage was increased to 15 mg. The other possibility is a new onset of benign essential tremor. Code(s): G25.1 - Drug-induced tremor Category: Medical Plan She will discuss this with her psychiatrist to see if an alternative drug could be used or if a lower dose of aripiprazole such as 10 mg could be tried. We h ave chosen not to start her on symptomatic treatment for benign essential tremor at this time pending adjustment of her psych medications Medications: Refilled cefuroxime axetil 500 mg PO Q12H 10 tabs 0RF Coding Level of Care Code New Pt Level 5 (62484) Diagnoses Medication-induced postural tremor G25.1
--- OUTSIDE RECORDS SUMMARY | 2025-02-10 10:09 | XMS_ITS | Clinical Summary ---
Author Organization [facility] Address [address] [place] [address] Care Team Providers Care Retail Pos Specialist Name Role Phone Taniya Ibarra MD Primary Care Provider + Allergies No known active allergies Medications albuterol HFA (PROAIR HFA ; PROVENTIL HFA ; VENTOLIN HFA) 90 mcg/actuation inhaler INHALE 2 PUFFS INTO THE LUNGS 4 TIMES A DAY 1 Active flash glucose scanning reader (FreeStyle Robert 14 Day Batchelor) [facility] [place] WITH SENSORS DIRECTED 0 Active flash [...] DDD (degenerative disc disease), cervical 2019 Diabetes ([facility] V24, [facility] V28) 03/24/2020 Parastomal hernia without obstruction or gangren e 03/24/2020 Obstruction of both ureters 01/09/2020 Immunizations Immunization Administration Dates Next Due Moderna SARS-CoV-2 COVID-19, [...] - PROPOFOL; Surgeon: Mercedez Thomson MD; Location: [facility] ENDOSCOPY; Service: Colorectal; Laterality: N/A; LAPAROSCOPY CLOSURE ENTEROSTOMY 01/29/2020 N/A PROCEDURE:LAPAROSCOPY CLOSURE ENTEROSTOMY;COMMENT:Procedur e: EXPLORATORY LAPAROTOMY TAKEDOWN OF COLOSTOMY; Surgeon: Mercedez Thomson MD; Location: [facility] MAIN OPERATING ROOM; Service: Colorectal; Laterality: N/A; ABDOMINAL ADHESION SURGERY 01/29/2020 N/A PROCEDURE:ABDOMINAL ADHESION SURGERY;COMMENT:Procedure: LAPAROSCOPY LYSIS OF ADHESIONS GENERAL; Surgeon: Mercedez Thomson MD; Location: [facility] MAIN OPERATING ROOM; Service: Colorectal; Laterality: N/A; ABDOMINAL SURGERY 01/29/2020 N/A PROCEDURE:ABDOMINAL SURGERY;COMMENT:Procedure: LAPAROTOMY LYSIS OF ADHESIONS; Surgeon: Mercedez Thomson MD; Location: [facility] MAIN OPERATING ROOM; Service: Colorectal; Laterality: N/A; PROCTECTOMY 01/29/2020 N/A PROCEDURE:PROCTECTOMY;COMMEN T:Procedure: PROCTECTOMY PARTIAL / TOTAL RECTAL APPROACH; Surgeon: Mercedez Thomson MD; Location: [facility] MAIN OPERATING ROOM; Service: Colorectal; Laterality: N/A; CYSTOSCOPY W/ URETERAL STENT PLACEMENT 01/29/2020 Bilateral PROCEDURE:CYSTOSCOPY W/ URETERAL STENT PLACEMENT;COMMENT:Procedure: CYSTOSCOPY INSERTION URETERAL STENT; Surgeon: Alvaro Castrejon MD; Location: [facility] MAIN OPERATING ROOM; Service: Urology; Laterality: Bilateral; EYE SURGERY PROCEDURE:EYE SURGERY;COMMENT:2014 lasik eye surgery ILEOSTOMY CLOSURE 04/29/2020 N/A PROCEDURE:ILEOSTOMY CLOSURE;COMMENT:Procedure: LOOP ILEOSTOMY TAKEDOWN; Surgeon: Mercedez Thomson MD; Location: [facility] MAIN OPERATING ROOM; Service: Colorectal; Laterality: N/A; COLONOSCOPY 04/29/2020 N/A PROCEDURE:COLONOSCOPY;COMMEN T:Procedure: COLONOSCOPY; Surgeon: Mercedez Thomson MD; Location: [facility] MAIN OPERATING ROOM; Service: Colorectal; Laterality: N/A; HERNIA REPAIR 04/29/2020 PROCEDURE:INGUINAL HERNIA REPAIR;COMMENT:Procedure: REPAIR INCISIONAL HERNIA; Surgeon: Mercedez Thomson MD; Location: [facility] MAIN OPERATING ROOM; Service: Colorectal;; ABSCESS DRAINAGE 09/08/2020 N/A PROCEDURE:ABSCESS DRAINAGE;COMMENT:Procedure: I&D ABSCESS ABDOMEN; Surgeon: Alexey Meraz MD; Location: [facility] MAIN OPERATING ROOM; Service: Colorectal; Laterality: N/A; ABSCESS DRAINAGE 10/29/2020 N/A PROCEDURE:ABSCESS DRAINAGE;COMMENT:Procedure: I&D ABDOMINAL WALL; Surgeon: Alexey Meraz MD; Location: [facility] MAIN OPERATING ROOM; Service: Colorectal; Laterality: N/A; COLONOSCOPY 11/22/2020 N/A PROCEDURE:COLONOSCOPY;COMMEN T:Procedure: COLONOSCOPY - PROPOFOL; Surgeon: Mercedez Thomson MD; Location: [facility] END[facility]; Service: Colorectal; Laterality: N/A; Medical History Medical History Date Comments Hypertension DX:Hypertension Diabetes mellitus ([facility] V24, [facility] V28) DX:Diabetes mellitus (HCC) Hypercholesteremia DX:Hyperchole steremia Diverticulitis of colon DX:Diver ticulitis of colon Colon polyp DX:Colon polyp Anxiety DX:Anxiety Depression DX:Depression Eczema DX:Eczema;COMMEN T:hands and feet Diabetes mellitus, type II ( [facility] V24, [facility] V28) DX:Diabetes mellitus, type I I ([facility]) Hemorrhoid DX:Hemorrhoid Urinary tract infection DX:Urina ry [...] Years (1 of 2 - PCV) 1982 Cervical Cancer Screening: Pap Smear 1984 Zoster Vaccines (1 of 2) 2013 Diabetes: Annual GFR (Glomerular Filtration Rate) 02/02/2022 02/02/2021, 12/31/2020, 12/30/2020, Additional history exists Diabetes: Annual Urine Albumin-Creatinine Ratio (uACR) 03/07/2024 Diabetes: Blood Sugar Control Test (HGBA1C) 03/07/2024 10/29/2020, 10/28/2020, 09/09/2020, Additional history exists HIV Screening 03/07/2024 Hepatitis C Screening 03/07/2024 Hypertension/CHF/CAD Annual BMP Blood Test 03/07/2024 02/02/2021, 12/31/2020, 12/30/2020, Additional history exists Social Influencers of Health Screening 03/07/2024 Depression Screening 05/14/2024 COVID-19 Vaccine (2 - season) 2025 07/30/2023 Influenza Vaccine (#1) 2025 Cholesterol Screening (Lipid Panel) 03/29/2025 03/29/2020, [...] * Annual BMP Blood Test (02/02/2021) Pathologist [facility] Annual BMP Blood Test abstracted Result [facility] Provider HEALTH MAINTENANCE Final Result * Colonoscopy (11/22/2020) [facility] Colonoscopy no interpretation , abstracted Anatomical Region Laterality Modality Other Result [facility] Provider HEALTH MAINTENANCE Final Result * (ABNORMAL) Hemoglobin A1c (10/29/2020) [facility] Hemoglobin A1C 7.3(A) <=5.7 % Blood Venous blood specimen / Unknown Result [facility] Provider LAB BLOOD ORDERABLES Caro l Result * (ABNORMAL) Lipid panel (03/29/2020) [facility] Triglycerides 259(A) <=150 mg/dL Cholesterol 161 0 - 200 mg/dL HDL 43 37 - 92 mg/dL LDL Cholesterol 66 50 - 130 mg/dL Blood Venous blood specimen / Unknown Result [facility] Provider LAB BLOOD ORDERABLES Caro l Result from Last 3 Months or Most Recently Relevant to Health Maintenance Care Teams Retail Pos Specialist Relationship Specialty Start Date End Date Taniya Ibarra MD [address] [place] [address] PCP - General Family Medicine 10/30/19
--- OUTSIDE RECORDS SUMMARY | 2025-02-10 10:09 | XMS_ITS | Clinical Summary ---
Author Organization [facility] Address [address] [place] [address] Care Team Providers Care Pulley Man Name Role Phone Taniya Ibarra MD Primary [...] Gluc Sensor (FREESTYLE ESTEFANIA 14 DAY SENSOR) [facility] [place]ENSOR TO CHECK BLOOD SUGAR, PUT ONE ON EVERY 14 DAYS 0 04/07/2020 Active Continuous Blood Gluc Paper Sorter And Counter (FREESTYLE ESTEFANIA 14 DAY READER) DAVID USE [...] Overview: Added automatically from request for surgery [id number] Ileostomy in place 04/29/2020 Intractable abdominal pain 03/28/2020 Hypertension 03/28/2020 Hypercholesteremia 03/28/2020 Hypomagnesemia 03/28/2020 Depression 03/28/2020 Diabetes 03/24/2020 Parastomal hernia without obstruction or gangren e 03/24/2020 Ileostomy present 03/24/2020 DDD (degenerative disc disease), cervical 2019 Obstruction of both ureters 01/09/2020 History of diverticulitis 12/26/2019 Overview: Added automatically from request for surgery [id number] Resolved Problems Problem Noted Date Diagnosed Date [...] 93 01/14/2021 12:57 PM EDT Temperature 36.8 C (98.2 F) 01/01/2021 4:08 PM EDT Respiratory Rate 18 01/01/2021 2:09 PM EDT [...] Additional history exists COVID-19 Vaccine (2 - 2024- season) 2025 07/30/2023 Influenza Vaccine (#1) 2025 0, 02/17/2019, 02/13/2018 Pneumococcal Vaccine (3 of [...] this topic Medical Devices Explanted Type Area Boiler Fitter Device Identifier Shelf Expiration Date Model / Serial / Lot Catheter Flexi-Tip .038in Standard 70cm 5fr Open End - [id number] - [id number] Explanted:Qty: 2 on 01/29/2020 [place] [facility] Other (Comments): [employer] 08/13/2022 [id number] / / [id number] Description:Bilateral Tips removed intact Advance Directives For more information, please contact: [phone] Documents on File Type Date Recorded Patient Payloader Operator Expl anation Advance Directive and Living Will [...] 11:04 AM 05/01/2020 5:13 PM Care Teams Pulley Man Relationship Specialty Start Date End Date Taniya Ibarra MD [address] [place] [address] PCP - General Family Medicine 10/30/19
--- OUTSIDE RECORDS SUMMARY | 2025-02-10 10:09 | XMS_ITS | Clinical Summary ---
Author Organization [facility] Address [address] [place] [phone] Phone Care Team Providers Care Forest Fire Fighters Dispatcher Name Role Phone Taniya Ibarra MD Primary Care Provider + Allergies No known active allergies Medications multivitamins-m inerals-folic pmxh-kqiposz-lv tein (CENTRUM SILVER) 0.4 mg-300 mcg- 250 mcg Tab Centrum Silver Activ e DULoxetine (CYMBALTA) 60 MG capsule DULoxetine HCl Acti ve fenofibrate (TRICOR) 145 MG tablet Fenofibrate Active albuterol 90 mcg/actuation inhaler INHALE 2 PUFFS INTO THE LUNGS 4 TIMES A DAY 3 Active PULMICORT FLEXHALER 90 mcg/actuation inhaler Inhale 2 puffs into the lungs 2 (two) times a day. 3 Active gabapentin (NEURONTIN) 100 MG capsule Take 200 mg by mouth. 2 Active glyBURIDE (DIABETA) 5 MG tablet Take 2 tablets by mouth 2 (two) times a day. 3 Active lamoTRIgine (LAMICTAL) 150 MG IMMEDIATE release tablet Take 100 mg by mouth every morning. 3 Active lisinopril (PRINIVIL,ZESTR IL) 5 MG tablet Take 1 tablet by mouth every morning. 3 Active LORazepam (ATIVAN) 1 MG tablet TAKE 1 TABLET BY MOUTH TWICE DAILY AND 2 AT BEDTIME 3 Active pioglitazone (ACTOS) 15 MG tablet 1 tablet Orally Once a day for 30 day(s) Active simvastatin (ZOCOR) 20 MG tablet take 1 tablet by mouth everyday at bedtime 3 Active Social History Tobacco Use Types Packs/Day Years Used Date Smoking Tobacco: Never Assessed Education Answer Date Recorded Are you interested in more education? Not on herbert e 09/08/2022 Are you concerned about learning? Not on file 09/08/2022 No 09/08/2022 No 09/08/2022 Digital Access Answer Date Recorded No 10/07/2022 No 10/07/2022 No 10/07/2022 Reliable internet access at home? Not on file 10/07/2022 Device with a working camera? Not on file Comments Unknown Sex and Gender Information Value Date Recorded Sex Assigned at Not on file Legal Sex Female 1:29 PM EDT Gender Identity Not on file Sexual Orientation Not on file Last Filed Vital Signs Vital Sign Reading Time Taken Comments Blood Pressure - - Pulse 80 01/30/2023 10:00 AM EDT Temperature 36.9 C (98.4 F) 01/30/2023 10:00 AM EDT Respiratory Rate - - Oxygen Saturation 96% 01/30/2023 10:00 AM EDT Inhaled Oxygen Concentration - - Weight - - Height - - Body Mass Index - - Plan of Treatment Upcoming Encounters Date Type Department Care Team (Late st Contact Info) Description 11/27/2025 9:30 AM EDT Office Visit [facility] Neurology [address] [place] [id number] Ganga Winslow MD [address] [place] [address], [address] [place] [address] [email or web address] Health Maintenance Due Date Last Done Comments Adult Td,Tdap Booster 1965 CREATININE LEVEL 1965 LIPID PANEL 1963 POTASSIUM LEVEL 1963 DEPRESSION SCREENING 1975 SMOKING Hx and SMOKELESS TOBACCO SCREENING 1976 HEPATITIS C SCREENING 1981 HIV ONE-TIME SCREENING (18-6 5 YEARS) 1981 MAMMOGRAM 2003 COLOGUARD 2008 COLONOSCOPY 2008 COLORECTAL CANCER SCREENING 2008 FIT TEST 2008 FOBT 2008 SIGMOIDOSCOPY 2008 VIRTUAL COLONOSCOPY 2008 PNEUMOCOCCAL VACCINES (50+ years) (2 of 2 - PCV) 04/07/2021 04/07/2020 INFLUENZA VACCINE (#1) 2024 COVID-19 VACCINE (2 - 2024-2 6 season) 2025 07/27/2020 PAP SMEAR 06/01/2025 06/01/2022 RSV VACCINE (1 - 1-dose 75+ series) 2038 ZOSTER VACCINES Completed 06/08/2020, 04/07/2020 HEPATITIS A VACCINES Aged Out No long er eligible based on patient's age to complete this topic HIB VACCINES Aged Out No longer eligi ble based on patient's age to complete this topic MENINGOCOCCAL VACCINES (ACWY) Aged Out No longer eligible based on patient's age to complete this topic MENINGOCOCCAL VACCINES (B) Aged Out N o longer eligible based on patient's age to complete this topic Medical Devices Not on file Procedures Procedure Name Priority Date/Time Associated Diagnosis Comments PAP TEST Routine 06/01/2022 12:00 AM EST from Last 3 Months or Most Recently Relevant to Health Maintenance Results * Pap Test (06/01/2022 12:00 AM EST) 06/01/2022 06/02/2022 9:2 5 AM EST Narrative SEE NARRATIVE - 06/07/2022 7:08 AM EST [address] [address] Phlebotomist Lab Assistant: Brenda Ivy MD RUBBER COMPOUNDER SUPERVISOR Cytology Report FINAL DIAGNOSIS A. PAP SMEAR (SUREPATH) VA: SPECIMEN ADEQUACY: Satisfactory for evaluation. INTERPRETATION: NEGATIVE FOR INTRAEPITHELIAL LESION OR MALIGNANCY. Electronically Signed Out By: GALLITO Lobato(ASCP) The Pap test is a screening test primarily for squamous cancers and precursors and has associated false-negative and false-positive results. New technologies such as liquid-based preparations may decrease but will not eliminate all false-negative results. Regular sampling and follow-up of unexplained clinical signs and symptoms are recommended to minimize false negative results. PROCEDURES/ADDENDA HPV Testing (Requested) Ordered Date: 06/02/2022 A. PAP SMEAR (SUREPATH) VA: Human Papilloma Virus Test NEGATIVE for high-risk Human Papilloma Virus types 16, 18, 45 and the Other high risk probe set (Includes 31, 33, 35, 39, 51, 52, 56, 58, 59, 66, 68) Note: Testing performed by [employer] Onclarity HR-HPV analysis. Clinical correlation is advised. This HPV test was performed at [facility], [address] [place] [address]. This test has been FDA approved for SurePath cervical cytology specimens. The accuracy and precision of this test for all other specimen sources has been verified in the Cytopathology Laboratory of the [facility] and has not been cleared or approved by the U.S. Food and Drug Administration. Clinical correlation is advised. CLINICAL HISTORY Date of Last Menstrual Period: Not Provided Menstrual History: Post Menopausal Post Hysterectomy: TOTAL Other Clinical Conditions: Screening Pap SPECIMEN SOURCE A: PAP SMEAR (SUREPATH) VA Patient Name: BENY LAUGHLIN : 1965 (Age: 57) Sex: F Institution: [facility] Location: [facility] Date of Collection: 06/01/2022 Date of Reported: 06/07/2022 07:08 Results to: Taniya Ibarra MD Taniya Ibarra MD CYTOLOGY ORDERABLES Caro martino Result SEE NARRATIVE from Last 3 Months or Most Recently Relevant to Health Maintenance Insurance MEDICARE PART A & B [employer] MEDEX SUPPLEMENT MEDICARE PART A & B [employer] MEDEX SUPPLEMENT MEDICARE PART A & B Member Subscriber Plan / Payer ( fective 2007-Present) Name:Beny Laughlin Member ID:[id number] Relation to Subscriber:Self Name:Beny Laughlin Subscriber ID:[id number] Payer ID:[id number] Group ID:Not on file Type:Medicare Address: [employer] [address] [place] [id number] [employer] MEDEX SUPPLEMENT MEDICARE PART A & B [employer] MEDEX SUPPLEMENT MEDICARE PART A & B [employer] MEDEX SUPPLEMENT MEDICARE PART A & B [employer] MEDEX SUPPLEMENT Care Teams Forest Fire Fighters Dispatcher Relationship Specialty Start Date End Date Taniya Ibarra MD [email or web address] PCP - General Family Medicine 11/13/18 Additional Source Comments The information contained in this document represents components of the legal health record. It is not the complete legal health record.[facility]
--- OUTSIDE RECORDS SUMMARY | 2025-02-10 10:09 | XMS_ITS | Patient Health Record ---
Author Organization [facility] Address [address] [place] [address] Care Team Providers Care Leadership Development Instructor Name Role Phone Taniya Ibarra MD Primary Care Provider Unavail able Trent Galan Unavailable [phone] Allergies No Known Allergies Results Component Value Reference Range Notes HEMOGLOBIN A1C (GLYCOHEMOGLO BIN) Reviewed date:12/17/2024 08:37:44 AM Interpretation: Performing Lab: Notes/Report: HEMOGLOBIN A1C % (HH) 8.4 Reason For Referral No Information Medications Medication SIG (Take, Route, Frequency, Duration) Notes Start Date End Date Status glipiZIDE 5 MG 2 tablets Orally Onc e a day Active LaMICtal Not-Taking lamoTRIgine 100 MG 2 tablets Orally Onc e a day Active Lisinopril Active Extra Depth Orthopedic Shoes (1 Pair) with Customized Heat Molded Multidensity Innersoles (3 Pair) as directed Dx: NIDDM (E11.9), Hammertoe Foot Deformity (M20.41,M20.42), Preulcerative Skin Lesion(s) (L85.1) Active LORazepam 1 MG 1 tablet as needed Orally Twice a day 04/30/2014 Not-Taking centrum silver Not-T aking DULoxetine HCl Activ e oxyBUTYnin Not-Takin g Fenofibrate Active Escitalopram Oxalate 10 MG Orally Once a day Not-Taking Centrum Silver Not-T aking Chantix 1 MG 1 tablet Orally Twic e a day Not-Taking Gemfibrozil Not-Taki ng ProAir HFA Not-Takin g Pioglitazone HCl 15 MG 1 tablet Orally O nce a day; Duration: 30 day(s) Active glyBURIDE 5 MG Orally Twice daily Not-Taking ARIPiprazole 15 MG 1 tablet Orally Once a day Active Simvastatin Active Immunizations Vaccine Route Administration Date Status Comme nts Influenza Unknown 01/28/2018 Administered Influenza Unknown 02/17/2019 Administered Influenza Unknown 03/14/2020 Administered Influenza Unknown 01/14/2024 Administered COVID-19 Moderna Vaccine Unknown 08/25/2020 Administere d 07/27/20 Social History Tobacco Use: Social History Observation Description Date Details (start date - stop date) Current Smoker 12/15/1974 - NA Tobacco use other than smoking: Question Answer Notes Are you an other tobacco user? No Tobacco Control (Standard) Question Answer Notes Tobacco use: Current smoker When did you start smoking? 12/15/1974 How often do you smoke cigarettes? Every day How many cigarettes a day do you smoke? 11-20 How soon after you wake up d o you smoke your first cigarette? 31-60 minutes Additional Findings: Tobacco user Modera te cigarette smoker (10-19 cigs/day) AUDIT-C (Standard) Question Answer Notes Did you have a drink contain ing alcohol in the past year? Yes How often did you have a dri nk containing alcohol in the past year? 2 to 4 times a month (2 points) How many drinks did you have on a typical day when you were drinking in the past year? 1 or 2 drinks (0 point) How often did you have six o r more drinks on one occasion in the past year? Never (0 point) Points 2 Interpretation Negative Problems Problem Type SNOMED Code ICD Code Onset Dates Problem Status W/U Status Risk Notes Problem Acquired hammer toe of right foot (791062451448255 5) Other hammer toe(s) (acquired), right foot (M20.41) Active confirmed Problem Acquired hammer toe of left foot (997619720444349 3) Other hammer toe(s) (acquired), left foot (M20.42) Active confirmed Problem Type II diabetes mellitus without complication (771183881) Type 2 diabetes mellitus without complication (E11.9) Active confirmed Vital Signs Blood pressure diastolic 70 mm Hg 12/17/2024 Height 5ft 2in in 12/17/2024 Blood pressure systolic 125 mm Hg 12/17/2024 Weight 175 lbs 12/17/2024 BMI 32 kg/m2 12/17/2024 Procedures Procedure Date Ordered Date Performed Result Body Sit e 13368-TMWOFRV NAIL, 6 OR MORE 12/17/2024 N/A Encounters Encounter Location Date Provider Diagnosis [facility] [address] [address] 12/17/2024 Trent Galan Tinea unguium B35.1 ; Other hammer toe(s) (acquired), right foot M20.41 ; Pain in right toe(s) M79.674 ; Pain in left toe(s) M79.675 ; Type 2 diabetes mellitus without complication E11.9 and Other hammer toe(s) (acquired), left foot M20.42 Assessments Encounter Date Diagnosis (ICD Code) Assessment Notes Treatment Notes Treatment Clinical Notes Section Notes 12/17/2024 Other hammer toe(s) (acquired), right foot (ICD-10 - M20.41) Patient Educated with: DIABETIC FOOT CARE INSTRUCTIONS.p df (DIABETIC FOOT CARE INSTRUCTIONS.p df) 12/17/2024 Tinea unguium (ICD-10 - B35.1) 12/17/2024 Pain in right toe(s) (ICD-10 - M79.674) 12/17/2024 Pain in left toe(s) (ICD-10 - M79.675) 12/17/2024 Type 2 diabetes mellitus without complication (ICD-10 - E11.9) 12/17/2024 Other hammer toe(s) (acquired), left foot (ICD-10 - M20.42) Plan Of Treatment Pending Test Test Name Order Date Hemoglobin A1c 09/17/2014 [id number] NAIL, 6 OR MORE 04/30/2014 [id number] NAIL, 6 OR MORE 09/17/2014 [id number] NAIL, 6 OR MORE 03/20/2018 [id number] NAIL, 6 OR MORE 03/17/2019 [id number] NAIL, 6 OR MORE 05/27/2020 [id number] NAIL, 6 OR MORE 07/18/2021 [id number] NAIL, 6 OR MORE 07/24/2022 [id number] NAIL, 6 OR MORE 12/19/2023 [id number] NAIL, 6 OR MORE 12/17/2024 [id number] NAIL, 6 OR MORE 01/11/2017 29001-Elrxlojo Plate 03/20/2018 37411-Olvieplg Plate 04/30/2014 83172-Juyzqorn Plate 01/11/2017 Next Appt Details Provider Name:Trent Galan , 02/15/2026 09:00:00 AM, [address], [address], [place], [address], Insurance Providers Payer Name Payer Address Payer Phone Subscriber Number Group Number Insured Name Patient Relationship to Insured Coverage Start Date Coverage End Date Medicare National [facility] [employer] [address] [place] [address] [id number] Ledy Laughlin Self - patient is the insured 8 [employer] [address] [place] [address] [id number] Ledy Laughlin Self - patient is the insured Medical (General) History Medical History History ICD Code Anxiety asthma Chicken pox Depression Measles Sciatica Cholesterol Diabetic Surgical History Surgery Date(Month/Year) section 87 & 90 hysterectomy 93 abdominal surgery 96 eye surgery 06/2015 Colostomy ileostomy 04/29/2020 Hospitalization History Reason Date(Month/Year) [facility]- pneumonia 09/25/24 [facility] 02/12/18 [facility] Colon resection 01/28/18 [facility] Accute diverticulitis 10/15/17 Eye surgery
== END 2025-02-10 10:15 | disposition home or self-care (01) ==
LOC: HO.HSM 09:21
PROVIDERS: PCP Family Medicine; Visit Provider Psychiatry & Neurology Neurology
DX: G25.1 Drug-induced tremor (principal)
CPT/HCPCS: 99203

== ENCOUNTER → 2025-02-10 09:20 | Outpatient (BNVA) | payer MEDICARE, SELFPAY | PROVIDERS: PCP Family Medicine; Visit Provider Psychiatry & Neurology Neurology | DX: G25.1 Drug-induced tremor (principal); F43.10 Post-traumatic stress disorder, unspecified; F32.A Depression, unspecified; F41.9 Anxiety disorder, unspecified | CPT/HCPCS: 99202 ==

== ENCOUNTER 2025-03-15 13:18 | Emergency (ER) | payer MEDICARE, SELFPAY ==
--- OUTSIDE RECORDS SUMMARY | 2023-10-10 03:30 | XMS_ITS ---
Author Organization [facility] Address [address] [place] [address] Care Team Providers Care Information Systems Administrator Name Role Phone Fred CORONEL, Taniya Primary Care Provider Unavail able Trent Galan Unavailable [phone] rivera Encounters Encounter Location Date Provider Diagnosis [address] [id number] 10/10/2023 Trent Galan Plan Of Treatment Next Appt Details Provider Name:Trent Galan , 02/15/2026 09:00:00 AM, [address] [place] [address], [phone], Progress Notes * Ledy LAUGHLIN EDOB:1965 ( 59 yo F)Acc No.[id number]:10/10/2023 Progress Note Patient: Keyana Ledy HERNANDEZ Provider: Johan Galan DPM :1965 A ge:58 Y S ex:Female Date:10/10/2023 Address:[address], [place], [place]-[id number] Pcp:Taniya Ibarra MD Subjective: * Chief Complaints: * [address] rivera[address] * Medical History: Objective: * Vitals: Assessment: Plan: * Treatment: * Images: * The named appointment provid er may or may not be the originator of this progress note, and it is not deemed complete until electronically signed by the appointment provider. Sign off status: Pending * Provider: Johan Galan DPM Date: 0 10/10/2023 Generated for Navid Camejo on: 05/15/2024 02:10 PM EST
--- NOTE | ~2025-03-15 | CT_ITS ---
CLINICAL HISTORY: abd pain, hx of diverticulitis CT abdomen and pelvis with contrast Comparison: None provided Findings: The lung bases are clear. 2 mm calcification within the upper pole of the left kidney, most likely a vascular calcification. No ureteral calculus or hydronephrosis. Remaining abdominal organs are unremarkable. There are no calcified gallstones. Postsurgical changes of both large and small bowel. No colitis or bowel obstruction. Diastasis of rectus musculature without bowing of the peritoneum. Small ventral hernia containing the anterior wall of a small portion of the transverse colon without associated obstruction or edema. No visualized diverticula. No evidence of diverticulitis. Status post hysterectomy. Otherwise unremarkable pelvic contents. Normal appendix. The bones are intact. IMPRESSION: No acute abdominal disease. Chronic findings as above. This document has been electronically signed by: Daniella Mota MD on 03/15/2025 17:12:53
[2025-03-15 13:34] VITALS: BP 154/69; PULSE 75; RESP 16; TEMP 36.1; O2SAT 97; BMI 33.3
--- NOTE | 2025-03-15 13:34 | ED.ABDPAIN ---
HPI - Abdominal Pain General Chief Complaint: Abdominal Pain Stated Complaint: acute abd, UC called Time Seen by Provider: 03/15/25 15:40 Source: patient and family (patient's ) Mode of arrival: ambulatory Limitations: no limitations History of Present Illness ED Provider: Myah Bragg PA-C HPI narrative: Patient is a 59 year old assigned female at with a history of COPD, depression, asthma, DM, essential tremor, and diverticulitis presenting to the emergency department today with abdominal pain. Patient states that over the last few days she has had abdominal pain and this is consistent with the last time she had diverticulitis. Patient states that her insurance has changed and her GI specialist no longer takes the insurance she has. Patient states that her stool has been different - thinner and stickier. Patient denies any other complaints at this time. Related Data Home Medications ?Medication ?Instructions ?Recorded ?Confirmed albuterol sulfate 90 mcg/actuation 2 puff inhalation Q4H PRN 09/25/24 02/10/25 aerosol inhaler Shortness Of Breath Or Wheezing aripiprazole 15 mg tablet 15 mg PO DAILY 09/25/24 02/10/25 duloxetine 60 mg capsule,delayed 120 mg PO DAILY 09/25/24 02/10/25 release fenofibrate nanocrystallized 145 145 mg PO DAILY 09/25/24 02/10/25 mg tablet fluticasone 100 mcg-salmeterol 50 1 ea inhalation BID 09/25/24 02/10/25 mcg/dose blistr powdr for inhalation (Wixela Inhub) gabapentin 300 mg capsule 600 mg PO TID 09/25/24 02/10/25 lamotrigine 100 mg tablet 200 mg PO BEDTIME 09/25/24 02/10/25 lisinopril 5 mg tablet 5 mg PO DAILY 09/25/24 02/10/25 lorazepam 1 mg tablet 1 mg PO BID PRN Anxiety 09/25/24 02/10/25 multivitamin 1 tab PO DAILY 09/25/24 02/10/25 mv-min-vit C 1,000 1 ea PO DAILY 09/25/24 09/25/24 xd-qaofuhxko-wujaim-herb 124 50 mg efferves tablet (Immune Support) pioglitazone 45 mg tablet 45 mg PO DAILY 09/25/24 02/10/25 simvastatin 20 mg tablet 20 mg PO BEDTIME 09/25/24 02/10/25 Previous Rx's ?Medication ?Instructions ?Recorded cefuroxime axetil 500 mg tablet 500 mg PO Q12H #10 tabs 02/10/25 Allergies Allergy/AdvReac Type Severity Reaction Status Date / Time No Known Allergies Allergy Verified 03/15/25 13:39 Review of Systems Constitutional: Reports as per HPI Eyes: Reports as per HPI Reports as per HPI Cardiovascular: Reports as per HPI Respiratory: Reports as per HPI Gastrointestinal: Reports as per HPI Genitourinary: Reports as per HPI Musculoskeletal: Reports as per HPI Skin/Breast: Reports as per HPI Reports as per HPI Psychiatric: Reports as per HPI Endocrine: Reports as per HPI Hematologic/Lymphatic: Reports as per HPI Allergic/Immunologic: Reports as per HPI [facility] Past Medical History Attestation statement: The following information was validated with the patient. (patient's validated all information) Source: old records reviewed, obtained from family (patient's provided additional history and confirmed the history provided by the patient. ) and nursing notes reviewed Medical History Diabetes mellitus Depression Asthma Obesity Vitamin D deficiency COPD (chronic obstructive pulmonary disease) Benign essential tremor Social History Social History Household Members: Spouse Housing: House Do you presently have visiting nurse or other home services: No Alcohol intake: current Alcohol type: beer Patient Tobacco Use Status: Current everyday Tobacco user Cigarette Packs Per Day: 1 Cigarettes Per Day: 20.0 Smoked in Last 30 Days: Yes Use of substances other than those prescribed or required for medical reasons: Yes Substance Use Type: Marijuana Advance Directives: No Advance Directives Information Provided: Yes Patient : No service: No Physical Exam ED Vital Signs: Vital Signs - 24 hr 03/15/25 13:34 03/15/25 16:26 03/15/25 17:45 Temperature 96.9 F 98.8 F 98.6 F Pulse Rate 75 68 70 Respiratory Rate 16 16 16 Blood Pressure 154/69 H 127/60 136/66 Pulse Oximetry 97 92 94 Oxygen Delivery Method Room Air Room Air Room Air BMI result Body Mass Index 33.3 Const General: cooperative, no acute distress, alert and awake Nutritional Appearance: well nourished Orientation/consciousness: patient oriented x3 HENMT Head: Yes normal to inspection and Yes atraumatic Ears: hearing grossly normal bilaterally and external ears normal General nose exam: Normal external nose present, no nasal discharge noted and no epistaxis Face and sinus: Yes normal facial exam, No abrasion and No laceration Mouth: Normal oral and palatal mucosa present, no drooling and no muffled voice Eyes General: appearance normal, both eyes and all related structures Periorbital: periorbital findings normal Eyelids: Yes eyelids normal Conjunctivae: conjunctivae normal Pupils: Equal, round and reactive pupils present EOM: EOMs intact bilaterally Neck Neck: Yes normal visual inspection and Yes full ROM Resp Effort & Inspection: normal respiratory effort and able to speak in complete sentences Neuro General: patient oriented x3, moves all extremities and CN's II-XI intact bilaterally Cranial nerves: Yes Equal, round and reactive pupils present Cognition (Neuro): normal cognition Extrem General: Yes normal to inspection, Yes full ROM and Yes capillary refill normal Psych Appearance: grossly normal Mental Status: mental status grossly normal Affect: normal affect Attitude: cooperative Thought process: Normal thought process present Thought content: Normal thought content present Insight: Good insight present (Psych) Course Course Course Narrative: This is a Rapid Medical Exam performed in triage by Rosario Liriano PA-C. Full HPI, ROS and PE to be performed by primary ED provider. 59 yo F with a past medical history diabetes, depression, asthma, obesity, COPD, diverticulitis w/perforation s/p colostomy/ileostomy w/reversal presenting to the ED sent in from for an acute abdomen. Patient reports abdominal pain & dark/sticky BMs x5-6 days. denies N/V, fever PE: abdomen soft diffusely ttp. no rebound or guarding Plan: labs, UA Medical Decision Making Medical Decision Making MDM Narrative: Patient is a 59 year old assigned female at with a history of COPD, depression, asthma, DM, essential tremor, and diverticulitis presenting to the emergency department today with abdominal pain. Patient's physical exam was as noted in the physical exam portion of this note. Patient's blood work was unremarkable. Patient's urine showed no acute process. Patient's CT abdomen/pelvis showed no acute process. I explained my physical exam findings as well as all test results to the patient and the patient's . I answered all questions asked by the patient and the patient's . Patient received IV Morphine which, upon re-evaluation, she stated it helped her pain some. Patient's clinical presentation is most consistent with general abdominal pain for which I recommended bowel rest / bland diet and establishing/following up with a new GI specialist. I stressed the importance of the patient taking her medication as directed (either prescribed or as the over the counter packaging recommends). I stressed the importance of the patient following up with her primary care provider and a GI specialist. I stressed the importance of the patient returning to the emergency department immediately if her symptoms were to worsen or if she were to develop any dizziness, shortness of breath, difficulty breathing, chest pain, blurry vision, loss of vision, nausea, vomiting, abdominal pain, fever, chills, back pain, or any other complaints. Patient and the patient's verbalized agreement and understanding with this treatment plan and discharge. Differential Diagnosis Differential Diagnoses: The differential diagnosis associated with the presentation includes Abdominal pain Perforation Diverticulitis Gastritis Gastroenteritis Colitis Admission/Observation Consideration of admission/observation: Escalation of care including admission/observation considered Patient would have been admitted to the hospital had her work up had any findings where hospital admission was appropriate and her clinical presentation warranted hospital admission. Lab Data [facility] Lab Attestation statement: I reviewed the patient's lab results. My interpretation of these results are in the [facility] Rationale portion of this note. 03/15/25 14:02 03/15/25 14:02 Labs: Lab Results 03/15/25 03/15/25 Range/Units 14:02 14:10 WBC 9.0 (4.8-10.8) X10*3/uL RBC 5.05 (4.20-5.50) X10*6/uL Hgb 16.1 H (12.0-16.0) g/dl Hct 47.7 H (37.0-47.0) % MCV 94.5 (80.0-98.0) fL MCH 31.9 (27.0-33.0) pg MCHC 33.8 (31.0-35.0) g/dl RDW 14.2 (11.0-16.0) % Plt Count 240 D (160-400) X10*3/uL MPV 10.6 (9.4-12.3) fL Immature Gran % (Auto) 0.2 (0.0-0.4) % Neut % (Auto) 70.7 (45-73) % Lymph % (Auto) 20.6 (20-40) % Blair % (Auto) 7.0 (2-11) % Eos % (Auto) 1.1 (0-4) % Baso % (Auto) 0.4 (0-2) % Lymph # (Auto) 1.9 (1.2-4.9) X10*3/uL Blair # (Auto) 0.6 (0.1-1.2) X10*3/uL Eos # (Auto) 0.1 (0.0-0.4) X10*3/uL Baso # (Auto) 0.0 (0.0-0.2) X10*3/uL Abs Immat Gran (auto) 0.02 (0.00-0.03) X10*3/uL Absolute Neuts (auto) 6.3 (2.0-8.3) x10*3/uL Absolute Nucleated RBC 0.000 (0.0-0.012) X10*3/uL Nucleated RBC % (auto) 0.0 (0.0-0.2) /100WBC Sodium 137 (135-145) mmol/L Potassium 4.5 (3.3-5.1) mmol/L Chloride 106 (96-108) mmol/L Carbon Dioxide 20 L (22-29) mmol/L Anion Gap 16 (12-20) BUN 10 (9-16) mg/dL Creatinine 0.62 (0.5-1.4) mg/dL Estim Creat Clear Calc 91.2 Estimated GFR > 60 Random Glucose 149 H (60-115) mg/dL Calcium 9.9 (8.4-10.2) mg/dL Magnesium 1.8 (1.6-2.6) mg/dL Total Bilirubin 0.4 (0.0-1.0) mg/dL Direct Bilirubin 0.1 (0.0-0.5) mg/dL AST 30 (5-31) U/L ALT 23 (0-31) U/L Alkaline Phosphatase 96 (39-117) U/L Total Protein 7.4 (6.5-8.0) g/dL Albumin 4.4 (3.5-5.0) g/dL Lipase 78 (8-78) U/L Urine Color Yellow Urine Appearance Clear Urine pH 5.5 (5.0-9.0) Ur Specific [place] <= 1.005 (1.005-1.025) Urine Protein Negative (Neg-Trace) mg/dL Urine Glucose (UA) Negative (Negative) mg/dL Urine Ketones Negative (Negative) mg/dL Urine Blood Negative (Negative) Urine Nitrite Negative (Negative) Ur Leukocyte Esterase Negative (Negative) Independent Interpretation I performed an independent interpretation of an: CT Scan Interpretation: My interpretation is in agreement with the radiologist's impression of this imaging study. Reason for Exam: abd pain, hx of diverticulitis CLINICAL HISTORY: abd pain, hx of diverticulitis CT abdomen and pelvis with contrast Comparison: None provided Findings: The lung bases are clear. 2 mm calcification within the upper pole of the left kidney, most likely a vascular calcification. No ureteral calculus or hydronephrosis. Remaining abdominal organs are unremarkable. There are no calcified gallstones. Postsurgical changes of both large and small bowel. No colitis or bowel obstruction. Diastasis of rectus musculature without bowing of the peritoneum. Small ventral hernia containing the anterior wall of a small portion of the transverse colon without associated obstruction or edema. No visualized diverticula. No evidence of diverticulitis. Status post hysterectomy. Otherwise unremarkable pelvic contents. Normal appendix. The bones are intact. IMPRESSION: No acute abdominal disease. Chronic findings as above. This document has been electronically signed by: Daniella Mota MD on 03/15/2025 17:12:53 Dictated By: Daniella Mota MD Signed By: Electronically signed by Daniella Mota MD 03/15/25 3918 Radiology Impression Discussion of test interpretation with radiology: I have reviewed the radiologist's reading. Independent Historian Clinical information obtained from an independent historian. History obtained from or confirmed by: Spouse (patient's provided additional history and confirmed the history provided by the patient. ) Medications Administered Discontinued Medications Generic Name Dose Route Start Last Admin Trade Name Freq PRN Reason Stop Dose Admin Iohexol 100 ml 03/15/25 16:10 03/15/25 16:11 Iohexol 350 Mg/Ml 100 Ml Infus..Btl IV 03/15/25 16:11 85 ml ONCE ONE Administration Morphine Sulfate 4 mg 03/15/25 15:43 03/15/25 16:16 Morphine Sulfate 4 Mg/Ml Cartridge IVPUSH 03/15/25 15:44 4 mg ONCE ONE Administration Protocol Ondansetron HCl 4 mg 03/15/25 15:43 03/15/25 16:17 Ondansetron Hcl 4 Mg/2 Ml Vial IVPUSH 03/15/25 15:44 4 mg ONCE ONE Administration Critical Care Time Critical Care Time Critical Care Time: Yes Total Critical Care Time: 32 Attestation: I spent 32 minutes of Critical Care Time with this patient. This does not include time spent on separately reported billable procedures. Discharge Plan Discharge Clinical Impression: Abdominal pain Patient Disposition: Home, Self-Care Instructions: Abdominal Pain (ED) Additional Instructions: Your work up today was reassuring there is no EMERGENT cause for your symptoms. Maintain a bland diet and follow up with a GI specialist. IF you are prescribed home medications and/or you are taking over the counter medications at home - it is very important you continue to do so as prescribed / directed unless told otherwise. Follow up with your primary care provider. Return to the emergency department immediately if your symptoms worsen or if you develop any numbness, tingling, dizziness, shortness of breath, difficulty breathing, chest pain, blurry vision, loss of vision, nausea, vomiting, abdominal pain, fever, chills, back pain, or any other complaints. Please see the information below about our Patient Portal. If you are not yet enrolled in the [facility] Patient Portal, you will receive an enrollment email invitation following your visit to any [facility] care setting. You may also self-enroll in the Patient Portal by visiting our website: [email or web address] The following information is required to access the Patient Portal: - Your [facility] Medical Record Number - Your personal home email address (must match what is in your electronic medical record, Registration staff can assist with this) - Name - Date of Capabilities of the Patient Portal: - Message some providers - View upcoming appointments - Access your health summary, medical history, and visit history - View current conditions and allergies - View procedure and lab results - View your medications, including guidelines, side effects, and precautions - Complete pre-appointment questionnaires requested by your provider - Ready summary reports of your office visits and procedures To access the Patient Portal Mobile [employer], follow these directions: - Search [facility] in the [employer] Store or Google Play Store - Download the [place] - Search for [facility] - Enter your login/password Prescriptions: No Action pioglitazone 45 mg tablet 45 mg PO DAILY simvastatin 20 mg tablet 20 mg PO BEDTIME gabapentin 300 mg capsule 600 mg PO TID lisinopril 5 mg tablet 5 mg PO DAILY lorazepam 1 mg tablet 1 mg PO BID PRN (Reason: Anxiety) fluticasone propion-salmeterol [Wixela Inhub] 100-50 mcg/dose blister with device 1 ea inhalation BID albuterol sulfate 90 mcg/actuation HFA aerosol inhaler 2 puff inhalation Q4H PRN (Reason: Shortness Of Breath Or Wheezing) lamotrigine 100 mg tablet 200 mg PO BEDTIME aripiprazole 15 mg tablet 15 mg PO DAILY duloxetine 60 mg capsule,delayed release(DR/EC) 120 mg PO DAILY fenofibrate nanocrystallized 145 mg tablet 145 mg PO DAILY multivitamin Tablet 1 tab PO DAILY Immune Support 1,000-50 mg Tablet, Effervescent 1 ea PO DAILY cefuroxime axetil 500 mg tablet 500 mg PO Q12H Qty: 10 0RF Referrals: [facility] Gastroenterology Services [Provider Group, Gastroenterology] Referral Note: Call to establish and follow up with a GI specialist. Taniya Ibarra MD [Primary Care Provider, Family Practice] Interventions: ED Discharge Assessment Last Done: 03/15/25 17:45 Discharge Date/Time: 03/15/25 17:46 Print Language: Bolivian
--- OUTSIDE RECORDS SUMMARY | 2025-03-15 14:10 | XMS_ITS | Data Portability ---
Author Organization [facility] Pain Managem ent, PAIN OFFICE Address [address] [facility] [facility] [address] [place] [address] Care Team Providers Care Ssis Developer Name Role Phone ERASMO KLEIN Primary Care Provider [phone] JEFE FLOREZ Referring Provider Assessment Encounter Date [...] By Organization Details Last Modified Time 10/10/2018 [id number] She was advised against bed rest lasting longer than four days and to continue activities as tolerated. [email or web address] Not available 10/10/2018 11:16:54 10/31/2018 [id number] She was advised against bed rest lasting longer than four days and to continue activities as tolerated. [email or web address] Not available 11/13/2018 08:53:10 11/13/2018 [id number] She was advised against bed rest lasting longer than four days and to continue activities as tolerated. [email or web address] Not available 11/13/2018 11:45:55 Reason for Referral None Reported. Problems Name Problem SNOMED Code Status Onset Date Resolution Date Notes Provider Name and Address Organization Details Recorded Time Muscle pain 54525889 Active Berlin smith MD [address] [place] [address] , [address], [place], [address], [place] [facility] 9 11:59:53 Degeneration of cervical intervertebral disc 48604746 Active Berlin smith MD [address] [facility] , [address], [place], [address], [place] [facility] 9 12:00:07 Problem Notes None recorded. Procedures Surgical History Date Name Laterality Status Provider Name and Address Organization Details Recorded Time 11/14/19 19 Trigger Point Injections under ultrasound guidance completed Berlin Willson MD [address] [facility] , [address], [place], [address], [place] [facility] 11/13/2018 11:46:05 11/01/19 19 Trigger Point Injections under ultrasound guidance completed Berlin Willson MD [address] [facility] , [address], [place], [address], [place] [facility] 11/13/2018 08:53:25 10/11/19 19 Trigger Point Injections under ultrasound guidance completed Berlin Willson MD [address] [facility] , [address], [place], [address], [place] [facility] 10/10/2018 11:15:58 Other completed Daniella Canchola [place] - [facility] 10/03/2018 10:11:51 Other completed Daniella Canchola [place] [facility] 10/03/2018 10:12:20 section completed Daniella Canchola [place] [facility] 10/03/2018 10:18:11 Other completed Daniella Canchola [place] [facility] 10/03/2018 10:18:59 Other completed Daniella Canchola [place] [facility] 10/03/2018 10:19:16 [...] Body mass index (BMI) Body weight Systolic And Diastolic Provider Name and Address Organization Details Last Updated DateTime 9 79 /min 98 % 98 % 154.94 cm 31.2 kg/m2 49196.7 4 g 158/76 mm[Hg] [facility] 9 10:04:58 Date Recorded Body height Heart rate Oxygen saturation Oxygen saturation in Arterial blood by Pulse oximetry Systolic And Diastolic Provider Name and Address Organization Details Last Updated DateTime 9 154.94 cm 74 /min 98 % 98 % 178/80 mm[Hg] [facility] 9 10:29:13 Date Recorded Body height Heart rate Oxygen saturation Oxygen saturation in Arterial blood by Pulse oximetry Systolic And Diastolic Provider Name and Address Organization Details Last Updated DateTime 9 154.94 cm 76 /min 98 % 98 % 147/83 mm[Hg] Daniellarossi SantosCanchola [place] - Pain Management 9 10:44:26 Date Recorded Body height Heart rate Oxygen saturation Oxygen saturation in Arterial blood by Pulse oximetry Systolic And Diastolic Provider Name and Address Organization Details Last Updated DateTime 9 154.94 cm 69 /min 98 % 98 % 144/95 mm[Hg] Daniellarossi SantosCanchola [place] - Pain Management 9 10:27:03 Social History Question Answer Notes LastModified by Organizat ion Details LastModified Time Tobacco Smoking Status Current Every Day [facility]oker Not [facility] 02/27/2020 03:16:11 Which Illicit Or Recreational Drugs Have You Used? No [id number] Information not available 02/27/2020 Education [employer] Information not available 10/03/2018 Live Alone Or With Others? With Others Information not available 10/03/2018 Marital Status Informatio n not available 10/03/2018 What Was The Date Of Your Most Recent Tobacco Screening? 11/13/2018 [id number] Information not available 02/27/2020 How Much Tobacco Do You Smoke? 1.5 PPD [id number] Information not available 02/27/2020 How Many Years Have You Smoked Tobacco? 35 [id number] Information not available 02/27/2020 Sex: Unknown Functional Status Question Answer Note LastModified by Organization D etails LastModified Time What is your level of alcohol consumption? Moderate [id number] Information not available 02/27/2020 Are you currently employed? No [id number] Information not available 02/27/2020 What is your occupation? Retired [email or web address] Information not available 10/03/2018 Mental Status None recorded. Family History Relationship Description Onset Age of this Age Resolved Age Notes LastModified by Organization Details LastModified Time Father Heart disease [facility] Not available 2018 10:14:18 Father Diabetes mellitus [email or web address] Not available 2018 10:14:36 Mother Diabetes mellitus [place] [id number] Not available 2018 10:14:36 Medical History Condition Response Arthritis Y High Cholesterol Y Diabetes Y Asthma Y Hypertension Y Gynecological HistoryNo gynecological history recorded. Obstetrics History GPAL:G 0 P 0 0 0 0 Past Encounters Encounter ID Performer Location Encounter Start Date Encounter Closed Date Diagnosis/Indication Diagnosis SNOMED-CT Code Diagnosis ICD10 Code Diagnosis IMO Codes Diagnosis Note [id number] Berlin Willson MD PAIN OFFICE [address] [place] [address] 10/03/2018 10:01:45 10/04/2018 11:59:25 Degeneration of cervical intervertebral disc 17154727 M50.30 Muscle pain 12461536 M79 .18 [id number] Berlin Willson MD PAIN OFFICE [address] [place] [address] 10/10/2018 10:15:01 10/10/2018 11:18:33 Degeneration of cervical intervertebral disc 03402555 M50.30 Muscle pain 18581685 M79 .18 [id number] Berlin Willson MD PAIN OFFICE [address] [place] [address] 10/31/2018 10:13:09 11/13/2018 08:55:33 Degeneration of cervical intervertebral disc 50871642 M50.30 Muscle pain 27186600 M79 .18 [id number] Berlin Willson MD PAIN OFFICE [address] [facility] [place] [address] 11/13/2018 09:42:13 11/13/2018 11:49:39 Degeneration of cervical intervertebral disc 54765055 M50.30 Muscle pain 90790812 M79 .18 Health Concerns Section Related Observation LastModified by Organization Detai ls LastModified Time None Recorded Concern Status LastModified by Organization Details LastModified Time None Recorded Advance Directives Directive None Recorded Payers Insurance Date Sequence Insurance Name Policy Number Policy Olea Covered Member ID Olea Member ID Guarantor Name 11/11/2018 1 [employer] (POS) Ledy Laughlin [id number] Ledy Laughlin 11/11/2018 2 MEDICARE [place]: [employer] Ledy Laughlin [id number] Ledy Laughlin Notes Date Note Type Note Provider Name and Address Organization Details Recorded Time 10/03/2018 text/html Ledy Laughlin is a 53 year old Right handed woman with complaints [...] mild C7-T1 radiculopathy. Berlin Willson MD [address] , [address], [place], [address], [facility] 10/10/2018 09:40:37 10/10/2018 text/html She is here for a trigger point injections in her right trapezius muscle under ultrasound guidance Berlin Willson MD [address] [facility] , [address], [place], [address], [place] - [facility] 10/14/2018 09:20:32 10/31/2018 text/html She is here for a trigger point injections in her right trapezius muscle under ultrasound guidance Berlin Willson MD [address] [facility] , [address], [place], [address], [place] - [facility] Management 11/13/2018 09:59:24 11/13/2018 text/html She is here for a trigger point injections in her right trapezius and paraspinal muscle in the cervical spine under ultrasound guidance. She reports good pain benefit with last injection and improved range of motion of her neck and shoulders . She has been doing stretching exercises at home. Berlin Willson MD [address] [facility] , [address], [place], [address], [place] - [facility] 11/16/2018 14:44:33 OBGyn Episode No OBEpisode recorded.
--- OUTSIDE RECORDS SUMMARY | 2025-03-15 14:10 | XMS_ITS | Clinical Summary ---
Author Organization [facility] Address [address] [place] [address] Phone Care Team Providers Care Neighborhood Planner Name Role Phone Taniya Ibarra MD Primary Care Provider + Allergies No known active allergies Medications multivitamins-m inerals-folic gtrz-tlxrujp-al tein (CENTRUM SILVER) 0.4 mg-300 mcg- 250 [...] Description 11/27/2025 9:30 AM EDT Office Visit [facility] [address] [place] [address] Ganga Winslow MD [address] [place] [address], [address] [place] [address] [email or web address] Health Maintenance Due Date Last Done Comments [...] SEE NARRATIVE - 06/07/2022 7:08 AM EST [address] [address] Academic Affairs Vice President: Brenda Ivy MD [employer] LOCOM[employer]IVE [employer]ER Cytology Report FINAL DIAGNOSIS A. PAP SMEAR [...] 59, 66, 68) Note: Testing performed by [facility] Onclarity HR-HPV analysis. Clinical correlation is advised. This HPV test was performed at [facility], [address] [place] [address]. This test has been FDA approved for SurePath cervical cytology specimens. The accuracy and precision of this test for all other specimen sources has been verified in the Cytopathology Laboratory of the [facility] and has not been cleared or approved by the U.S. Food and Drug Administration. Clinical correlation is advised. CLINICAL HISTORY Date of Last Menstrual Period: Not Provided Menstrual History: Post Menopausal Post Hysterectomy: TOTAL Other Clinical Conditions: Screening Pap SPECIMEN SOURCE A: PAP SMEAR ([facility]RE[facility]) [place] Patient Name: BENY LAUGHLIN : 1965 (Age: 57) Sex: F Institution: [facility] Location: [facility] Date of Collection: 06/01/2022 Date of Reported: 06/07/2022 07:08 Results to: Taniya Ibarra MD Taniya Ibarra MD CYTOLOGY ORDERABLES Caro martino Result SEE NARRATIVE from Last 3 Months or Most Recently Relevant to Health Maintenance Insurance MEDICARE PART A & B [employer] MEDEX SUPPLEMENT MEDICARE PART A & B [employer] MEDEX SUPPLEMENT MEDICARE PART A & B Member Subscriber Plan / Payer ( fective 2007-Present) Name:Beny Laughlin Member ID:[id number] Relation to Subscriber:Self Name:Beny Laughlin Subscriber ID:[id number] Payer ID:[id number] Group ID:Not on file Type:Medicare Address: [facility] [address] [place] [phone] [employer] MEDEX SUPPLEMENT MEDICARE PART A & B [employer] MEDEX SUPPLEMENT MEDICARE PART A & B [employer] MEDEX SUPPLEMENT MEDICARE PART A & B [employer] MEDEX SUPPLEMENT Care Teams Neighborhood Planner Relationship Specialty Start Date End Date Taniya Ibarra MD [email or web address] PCP - General Family Medicine 11/13/18 Additional Source Comments The information contained in this document represents components of the legal health record. It is not the complete legal health record.[facility]
--- OUTSIDE RECORDS SUMMARY | 2025-03-15 14:11 | XMS_ITS | Clinical Summary ---
Author Organization [facility] Address [address] [place] [address] Care Team Providers Care Muffler Hand Name Role Phone Taniya Ibarra MD Primary [...] Gluc Sensor (FREESTYLE ESTEFANIA 14 DAY SENSOR) [facility] USE SENSOR TO CHECK BLOOD SUGAR, PUT ONE ON EVERY 14 DAYS 0 04/07/2020 Active Continuous Blood Gluc Marketing Producer (FREESTYLE ESTEFANIA 14 DAY READER) DAVID USE [...] Overview: Added automatically from request for surgery [id number] Ileostomy in place 04/29/2020 Intractable abdominal pain 03/28/2020 Hypertension 03/28/2020 Hypercholesteremia 03/28/2020 Hypomagnesemia 03/28/2020 Depression 03/28/2020 Diabetes 03/24/2020 Parastomal hernia without obstruction or gangren e 03/24/2020 Ileostomy present 03/24/2020 DDD (degenerative disc disease), cervical 2019 Obstruction of both ureters 01/09/2020 History of diverticulitis 12/26/2019 Overview: Added automatically from request for surgery [id number] Resolved Problems Problem Noted Date Diagnosed Date [...] this topic Medical Devices Explanted Type Area Business Computers Teacher Device Identifier Shelf Expiration Date Model / Serial / Lot Catheter Flexi-Tip .038in Standard 70cm 5fr Open End - [id number] - [id number] Explanted:Qty: 2 on 01/29/2020 [place] [facility] Other (Comments): [employer] - [employer] 08/13/2022 [id number] / / [id number] Description:Bilateral Tips removed intact Advance Directives For more information, please contact: [phone] Documents on File Type Date Recorded Patient Historical Records Administrator Expl anation Advance Directive and Living Will [...] 11:04 AM 05/01/2020 5:13 PM Care Teams Muffler Hand Relationship Specialty Start Date End Date Taniya Ibarra MD [address] [place] [address] PCP - General Family Medicine 10/30/19
--- OUTSIDE RECORDS SUMMARY | 2025-03-15 14:11 | XMS_ITS | Patient Health Record ---
Author Organization [facility] Address [address] [facility] [place] [address] Care Team Providers Care Athletic Coach Name Role Phone Taniya Ibarra MD Primary Care Provider Unavail able Trent Galan Unavailable [phone] Allergies No Known Allergies Results Component Value [...] Problem Acquired hammer toe of right foot (231935727183912 5) Other hammer toe(s) (acquired), right foot (M20.41) Active confirmed Problem Acquired hammer toe of left foot (396124736511049 3) Other hammer toe(s) (acquired), left foot (M20.42) Active confirmed Problem Type II diabetes mellitus without complication (688647531) Type 2 diabetes mellitus without complication (E11.9) Active confirmed Vital Signs Blood pressure diastolic 70 mm Hg 12/17/2024 Height 5ft 2in in 12/17/2024 Blood pressure systolic 125 mm Hg 12/17/2024 Weight 175 lbs 12/17/2024 BMI 32 kg/m2 12/17/2024 Procedures Procedure Date Ordered Date Performed Result Body Sit e 79478-ZQAREVY NAIL, 6 OR MORE 12/17/2024 N/A Encounters Encounter Location Date Provider Diagnosis [facility] [address] [address] 12/17/2024 Trent Galan Tinea unguium B35.1 ; [...] Test Name Order Date Hemoglobin A1c 09/17/2014 [id number]-[id number] NAIL, 6 OR MORE 04/30/2014 [id number] NAIL, 6 OR MORE 09/17/2014 [id number] NAIL, 6 OR MORE 03/20/2018 [id number] NAIL, 6 OR MORE 03/17/2019 [id number] NAIL, 6 OR MORE 05/27/2020 [id number] NAIL, 6 OR MORE 07/18/2021 [id number] NAIL, 6 OR MORE 07/24/2022 [id number] NAIL, 6 OR MORE 12/19/2023 [id number] NAIL, 6 OR MORE 12/17/2024 46254-NZRMHCF NAIL, 6 OR MORE 01/11/2017 65605-Yqskbiah Plate 03/20/2018 41435-Mziitgmc Plate 04/30/2014 89639-Hwumqsif Plate 01/11/2017 Next Appt Details Provider Name:Trent Galan , 02/15/2026 09:00:00 AM, [address] [facility], [address], [place], [address], Insurance Providers Payer Name Payer Address Payer Phone Subscriber Number Group Number Insured Name Patient Relationship to Insured Coverage Start Date Coverage End Date Medicare [facility] [employer] [address] [place] [address] [id number] Ledy Laughlin Self - patient is the insured 8 [employer] Blue Shield [address] [place] [address] [id number] Ledy Laughlin Self - patient is the insured Medical (General) History Medical History History ICD Code Anxiety asthma Chicken pox Depression Measles Sciatica Cholesterol Diabetic Surgical History Surgery Date(Month/Year) section 87 & 90 hysterectomy 93 abdominal surgery 96 eye surgery 06/2015 Colostomy ileostomy 04/29/2020 Hospitalization History Reason Date(Month/Year[place] [facility] [place]24 [facility] 02/12/18 [facility] Colon resection 01/28/18 [facility] Accute diverticulitis 10/15/17 Eye surgery
[2025-03-15 14:15] LABS: MANUAL DIFF FLAG NO
[2025-03-15 14:18] LABS: Appearance Urine Clear; Glucose Urine UA Negative (Negative); PH 5.5 (5.0-9.0); Specific Gravity - Urine <= 1.005 (1.005-1.025)
[2025-03-15 14:18] LABS: Hematocrit 47.7 % (37.0-47.0); Hemoglobin 16.1 g/dl (12.0-16.0); Imm Gran Abs Auto 0.02 X10*3/uL (0.00-0.03); Imm Gran Pct Auto 0.2 % (0.0-0.4); Lymphocytes Absolute Auto 1.9 X10*3/uL (1.2-4.9); Mean Corpuscular HGB Conc 33.8 g/dl (31.0-35.0); Mean Corpuscular Hemoglobin 31.9 pg (27.0-33.0); Mean Corpuscular Volume 94.5 fL (80.0-98.0); NRBC Abs Auto 0.000 X10*3/uL (0.0-0.012); NRBC Pct Auto 0.0 /100WBC (0.0-0.2); Platelet Count 240 X10*3/uL (160-400); Red Blood Count 5.05 X10*6/uL (4.20-5.50); White Blood Count 9.0 X10*3/uL (4.8-10.8)
[2025-03-15 14:30] LABS: Alanine Aminotransferase 23 U/L (0-31); Albumin Level 4.4 g/dL (3.5-5.0); Alkaline Phosphatase 96 U/L (39-117); Anion Gap 16 (12-20); Aspartate Amino Transferase 30 U/L (5-31); Blood Urea Nitrogen 10 mg/dL (9-16); Calcium 9.9 mg/dL (8.4-10.2); Carbon Dioxide 20 mmol/L (22-29); Chloride 106 mmol/L (96-108); Creatinine Clr Calc Pharmacy 91.2; Estimated Glomerular Filt Rate > 60; Lipase 78 U/L (8-78); Magnesium 1.8 mg/dL (1.6-2.6); Potassium 4.5 mmol/L (3.3-5.1); Sodium 137 mmol/L (135-145); Total Protein 7.4 g/dL (6.5-8.0)
[2025-03-15] MEDS: iohexoL 350 MG/ML 100 ML INFUS..BTL IV (16:11)
--- NOTE | 2025-03-15 16:20 | PC.NURSE ---
patient a&ox3, iv inserted, labs previously drawn, pt medicated for 9/10 abd pain and nausea. rr equal/non labored, vss family at bedside, plan of care ongoing
[2025-03-15 16:26] VITALS: BP 127/60; PULSE 68; RESP 16; TEMP 37.1; O2SAT 92
[2025-03-15 17:45] VITALS: BP 136/66; PULSE 70; RESP 16; TEMP 37; O2SAT 94
== END 2025-03-15 17:46 | disposition home or self-care (01) ==
PROVIDERS: Physician Assistant; Emergency Provider Emergency Medicine; PCP Family Medicine
DX: R10.23 Pelvic and perineal pain bilateral (principal); J44.9 Chronic obstructive pulmonary disease, unspecified; F17.210 Nicotine dependence, cigarettes, uncomplicated; Z79.899 Other long term (current) drug therapy
CPT/HCPCS: 36415; 74177; 80048; 80076; 81003; 83690; 83735; 85025; 96374; 96375; 99284; J2270; J2405; Q9967

== ENCOUNTER → 2025-03-15 15:43 | Outpatient (BNV) | payer MEDICARE, SELFPAY | PROVIDERS: Emergency Provider Emergency Medicine; PCP Family Medicine; Visit Provider Radiology Diagnostic Radiology | DX: R10.9 Unspecified abdominal pain (principal); Z87.19 Personal history of other diseases of the digestive system | CPT/HCPCS: 74177 ==